=== PATIENT | female | born 1955 | race Caucasian/White ===

== ENCOUNTER → 2016-04-24 | Outpatient (CLI) | payer OTHER ==
[~2016-04-24] MED LIST: ACTOSPLUSMET PD; CALA180T OR; FAMO40TA2 OR; GLIP5TAB2 PO; JANUVIA PO; LASI80TA OR; LISI5TAB OR; NIAS750T3 OR; PLAV75TA2 OR; POTA20TA OR; ROSU10TA OR; VALS40TA OR; ZETI10TA OR
[2016-04-24 09:12] LABS: BASO # 0.1 K/mm3 (0.0-0.2); BASO % 0.9 % (0.0-1.0); EOS # 0.3 K/mm3 (0.0-0.50); EOS % 3.3 % (0.0-3.0); LYMPH # 3.3 K/mm3 (1.5-4.5); LYMPH % 36.9 % (24.0-44.0); MEAN CORPUSCULAR HGB CONC 32.2 g/dl (32.0-36.5); MONO # 0.5 K/mm3 (0.0-0.8); MONO % 5.5 % (0.0-5.0); NEUTROPHILS # 4.5 K/mm3 (1.8-7.7); NEUTROPHILS % 50.9 % (36.0-66.0); RED CELL DISTRIBUTION WIDTH 13.6 % (11.5-14.5); WHITE BLOOD COUNT 8.9 K/mm3 (4.0-10.0)
[2016-04-24 09:46] LABS: ALBUMIN 3.3 GM/DL (3.2-5.2); ALBUMIN/GLOBULIN RATIO 0.97 (1.00-1.93); ALKALINE PHOSPHATASE 75 U/L (45-117); ALT/SGPT 13 U/L (12-78); ANION GAP 10 MEQ/L (8-16); AST/SGOT 11 U/L (15-37); BILIRUBIN,TOTAL 0.2 MG/DL (0.2-1.0); BLOOD UREA NITROGEN 11 MG/DL (7-18); CALCIUM LEVEL 9.2 MG/DL (8.8-10.2); CARBON DIOXIDE LEVEL 26 MEQ/L (21-32); CHLORIDE LEVEL 107 MEQ/L (98-107); CHOLESTEROL LEVEL 157 MG/DL (<200); CREATININE FOR GFR 0.91 MG/DL (0.55-1.02); GLOMERULAR FILTRATION RATE > 60.0 (>45); GLUCOSE, FASTING 116 MG/DL (80-110); POTASSIUM SERUM 4.3 MEQ/L (3.5-5.1); SODIUM LEVEL 143 MEQ/L (136-145); TOTAL PROTEIN 6.7 GM/DL (6.4-8.2); TRIGLYCERIDES LEVEL 176 MG/DL (<150)
== END ==
LOC: M LAB 08:13
PROVIDERS: ATTEND Physician Assistant Medical
DX: E11.9 Type 2 diabetes mellitus without complications (principal)

== ENCOUNTER → 2016-06-13 | Outpatient (CLI) | payer OTHER ==
--- NOTE | 2016-06-13 15:19 | RADONC ---
RADIATION ONCOLOGY FOLLOWUP NOTE: DATE OF SERVICE: 06/13/2016 CHART NO: 15 - 015 DIAGNOSIS: Right breast cancer. STAGE: Stage 0, [id number] ECOG PERFORMANCE STATUS: 0 Ms. 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 The patient presents today reporting that she is doing quite well with no complaints at this time related to her radiation therapy or disease. She has no breast or bone pain. REVIEW OF SYSTEMS: The patient's review of systems is noncontributory. Denies nausea, vomiting, fevers, chills, night sweats, diplopia, headaches, anxiety or depression, anorexia, weight loss, visual disturbances, chest pain, urinary or bowel difficulties, bone pain, or neurological problems. PHYSICAL EXAMINATION: The patient is a well-developed, well-nourished female in no acute distress. HEENT exam is normocephalic, atraumatic. Extraocular movements are intact. There is no palpable cervical, supraclavicular, infraclavicular, axillary, or inguinal lymphadenopathy present. Lungs are clear to auscultation and percussion. Heart has a regular rate and rhythm. Abdomen is benign with no hepatosplenomegaly, masses, or tenderness. Breast examination reveals no masses or discharge bilaterally. Skeletal examination reveals no tenderness to pressure or percussion of the bony skeleton. Extremities reveal no clubbing, cyanosis, or edema. Neurologic exam is grossly intact, as is the remainder of the physical examination. ASSESSMENT: The patient is clinically DIEGO at this time and will be seen by us again in 6 months for further followup. She will also continue to be followed by her other physicians as well. cc: DO Tara Davalos MD *NICOLETTE Morgan
== END ==
LOC: M ONCR 13:50
PROVIDERS: ATTEND Radiology Radiation Oncology
DX: D05.11 Intraductal carcinoma in situ of right breast (principal)

== ENCOUNTER → 2016-07-20 | Outpatient (CLI) | payer OTHER ==
[2016-07-20 09:01] LABS: BASO # 0.1 K/mm3 (0.0-0.2); BASO % 1.8 % (0.0-1.0); EOS # 0.2 K/mm3 (0.0-0.50); EOS % 3.1 % (0.0-3.0); LYMPH # 2.5 K/mm3 (1.5-4.5); LYMPH % 29.9 % (24.0-44.0); MEAN CORPUSCULAR HEMOGLOBIN 29.3 pg (27.0-33.0); MEAN CORPUSCULAR HGB CONC 32.7 g/dl (32.0-36.5); MEAN CORPUSCULAR VOLUME 89.8 fl (80.0-96.0); MONO # 0.5 K/mm3 (0.0-0.8); MONO % 5.9 % (0.0-5.0); NEUTROPHILS # 4.5 K/mm3 (1.8-7.7); NEUTROPHILS % 57.2 % (36.0-66.0); RED CELL DISTRIBUTION WIDTH 13.1 % (11.5-14.5); WHITE BLOOD COUNT 7.8 K/mm3 (4.0-10.0)
[2016-07-20 09:33] LABS: ALBUMIN 3.6 GM/DL (3.2-5.2); ALBUMIN/GLOBULIN RATIO 1.06 (1.00-1.93); BILIRUBIN,TOTAL 0.3 MG/DL (0.2-1.0); CALCIUM LEVEL 9.1 MG/DL (8.8-10.2); CREATININE FOR GFR 1.02 MG/DL (0.55-1.02); GLOMERULAR FILTRATION RATE 58.3 (>45)
== END ==
LOC: M LAB 08:17
PROVIDERS: ATTEND Physician Assistant Medical
DX: E11.9 Type 2 diabetes mellitus without complications (principal)

== ENCOUNTER 2016-09-15 21:19 | Emergency (ER) | payer MEDICAID ==
[~2016-09-15] VITALS: Ht 157.5 cm; Wt 96.8 kg
[2016-09-15] MEDS ORDERED: METF-415 PO (21:34)
[2016-09-15] MEDS ORDERED: TAMO20TA4 PO (21:34)
[2016-09-15] MEDS ORDERED: TOUJ1.2I SC (21:34)
[2016-09-15] MEDS ORDERED: LOSA100T36 PO (21:34)
[2016-09-15] MEDS ORDERED: SPIR25TA2 PO (21:34)
[2016-09-15] MEDS ORDERED: HYDR-3363 PO (21:34)
[2016-09-15] MEDS ORDERED: CHLO25TA PO (21:34)
[2016-09-15] MEDS ORDERED: VENL75TA2 PO (21:34)
[2016-09-15] MEDS ORDERED: JARD1TAB3 PO (21:34)
[2016-09-15] MEDS ORDERED: DRIS50002 PO (21:34)
[2016-09-15] MEDS ORDERED: ATOR80TA59 PO (21:34)
[2016-09-15] MEDS ORDERED: NORCO 5/325MG TABLET (BULK FOR ED) PO ONE (23:45)
[2016-09-16 00:14] VITALS: BP 164/86
--- NOTE | 2016-09-16 12:57 | REP ---
RIGHT HAND SERIES: Four views right hand performed. There is a nondisplaced fracture at the base of the fourth proximal phalanx which extends into the metacarpophalangeal joint. No other acute fracture or dislocation is seen. IMPRESSION: Nondisplaced intra-articular fracture base of fourth proximal phalanx. Signed by Rohan Blue MD 09/16/2016 07:30 P
[2016-10-24] MEDS ORDERED: FAMO40TA3 PO (09:45)
[2016-10-24] MEDS ORDERED: PLAV1TAB2 PO (09:45)
[2016-10-24] MEDS ORDERED: JARD1TAB3 PO (09:45)
[2016-10-24] MEDS ORDERED: VERA1TAB11 PO (09:45)
== END 2016-09-16 00:16 | disposition home or self-care (01) ==
LOC: M ED 21:19
DX: S62.644A Nondisplaced fracture of proximal phalanx of right ring finger, initial encounter for closed fracture (principal); S50.311A Abrasion of right elbow, initial encounter; W10.1XXA Fall (on)(from) sidewalk curb, initial encounter; Y92.410 Unspecified street and highway as the place of occurrence of the external cause; Y93.89 Activity, other specified; Y99.8 Other external cause status; G43.909 Migraine, unspecified, not intractable, without status migrainosus; R56.9 Unspecified convulsions; E78.00 Pure hypercholesterolemia, unspecified; I10 Essential (primary) hypertension; E11.9 Type 2 diabetes mellitus without complications; N28.89 Other specified disorders of kidney and ureter; F32.9 Major depressive disorder, single episode, unspecified; Z85.3 Personal history of malignant neoplasm of breast; Z79.899 Other long term (current) drug therapy; Z79.02 Long term (current) use of antithrombotics/antiplatelets; Z79.4 Long term (current) use of insulin

== ENCOUNTER → 2016-10-24 | Outpatient (CLI) | payer OTHER ==
[~2016-10-24] MED LIST changes: +ATOR80TA59 PO; +CHLO25TA PO; +DRIS50002 PO; +FAMO40TA3 PO; +HYDR-3363 PO; +JARD1TAB3 PO; +LOSA100T36 PO; +METF-415 PO; +PLAV1TAB2 PO; +SPIR25TA2 PO; +TAMO20TA4 PO; +TOUJ1.2I SC; +VENL75TA2 PO; +VERA1TAB11 PO
[2016-10-24 08:57] LABS: BASO # 0.1 K/mm3 (0.0-0.2); BASO % 1.3 % (0.0-1.0); EOS # 0.2 K/mm3 (0.0-0.50); EOS % 2.9 % (0.0-3.0); LYMPH # 2.3 K/mm3 (1.5-4.5); LYMPH % 25.3 % (24.0-44.0); MEAN CORPUSCULAR HEMOGLOBIN 29.1 pg (27.0-33.0); MEAN CORPUSCULAR HGB CONC 32.4 g/dl (32.0-36.5); MEAN CORPUSCULAR VOLUME 89.9 fl (80.0-96.0); MONO # 0.5 K/mm3 (0.0-0.8); MONO % 5.6 % (0.0-5.0); NEUTROPHILS # 5.6 K/mm3 (1.8-7.7); NEUTROPHILS % 63.6 % (36.0-66.0); RED CELL DISTRIBUTION WIDTH 12.9 % (11.5-14.5); WHITE BLOOD COUNT 8.8 K/mm3 (4.0-10.0)
[2016-10-24 09:00] LABS: INR 0.94
[2016-10-24 09:24] LABS: ALBUMIN 3.5 GM/DL (3.2-5.2); ALKALINE PHOSPHATASE 62 U/L (45-117); ALT/SGPT 14 U/L (12-78); ANION GAP 9 MEQ/L (8-16); AST/SGOT 19 U/L (15-37); BILIRUBIN,TOTAL 0.5 MG/DL (0.2-1.0); BLOOD UREA NITROGEN 17 MG/DL (7-18); CALCIUM LEVEL 9.3 MG/DL (8.8-10.2); CARBON DIOXIDE LEVEL 25 MEQ/L (21-32); CHLORIDE LEVEL 107 MEQ/L (98-107); CHOLESTEROL LEVEL 148 MG/DL (<200); CREATININE FOR GFR 0.84 MG/DL (0.55-1.02); GLOMERULAR FILTRATION RATE > 60.0 (>45); GLUCOSE, FASTING 91 MG/DL (80-110); SODIUM LEVEL 141 MEQ/L (136-145); TRIGLYCERIDES LEVEL 155 MG/DL (<150)
[2016-10-24 09:33] LABS: POTASSIUM SERUM 5.2 MEQ/L (3.5-5.1)
--- NOTE | 2016-10-24 17:00 | REP ---
Chest x-ray: Two views: History: Age-related cataract. Comparison chest x-ray 02/14/2014. Findings: The lungs are symmetrically aerated and free of infiltrate. Pleural angles are sharp. Heart is not enlarged. There are degenerative changes in the thoracic spine. Pulmonary vasculature is not increased. Impression: Degenerative changes in the thoracic spine. Otherwise no active disease. Signed by Kurt Barnes MD 10/24/2016 05:12 P
--- NOTE | 2016-10-24 23:22 | ECGEPIP ---
Stationary ECG Study [facility] Test Date: 2016-10-24 Pat Name: JANAE PAEZ Department: Room: - Gender: F Civil Designer: ELIEZER : 1955 Requested By: Brooklyn Abad Order Number: [id number] Reading MD: Travis Ramirez Measurements Intervals [place] Rate: 85 P: 62 SD: 170 QRS: 26 QRSD: 96 T: 47 QT: 380 QTc: 452 Interpretive Statements SINUS RHYTHM LOW QRS VOLTAGE IN PRECORDIAL LEADS INFERIOR MYOCARDIAL INFARCTION, OLD Poor R-wave progression. No significant change compared with 02/26/2014. Electronically Signed On 10-24-2016 23:22:37 EDT by Travis Ramirez
== END ==
LOC: M LAB 08:08
PROVIDERS: ATTEND Physician Assistant Medical
DX: Z01.818 Encounter for other preprocedural examination (principal); H25.22 Age-related cataract, morgagnian type, left eye; E11.9 Type 2 diabetes mellitus without complications; I25.2 Old myocardial infarction; M51.34 Other intervertebral disc degeneration, thoracic region

== ENCOUNTER 2016-11-07 12:54 | Day surgery (SDC) | payer MEDICAID, OTHER ==
[~2016-11-07] VITALS: Ht 157.5 cm; Wt 97.1 kg
[~2016-11-07 12:54] MED LIST changes: +ACETAMINOPHEN 325 MG TAB PO PRN; +BSS with VANC/TOB/EPI for EYE CASES IR ONE; +CYCLOPENTOLATE 2% OPHTH SOLN 2ML BTL OS ONE; +HEALON DUET (HEALON 10MG/ML 0.55ML & HEALON ENDOCOAT 30MG/ML 0.85ML) As Ordered ONE; +LIDOCAINE 1% SDV 5 ML VIAL As Ordered ONE; +LIDOCAINE 3.5 % 1ML OPHTH TOPICAL GEL OU ONE; +MOXIFLOXACIN IN BSS 0.25MG/0.25ML INTRACAMERAL INJ (OR EYE ONLY)(J2280) As Ordered ONE; +OFLOXACIN 0.3 % (OCUFLOX) OPTH SOL 5ML OS ONE; +PHENYLEPHRINE 2.5% OPHTH SOL 2ML OS ONE; +POVIDONE-IODINE 5% OPHTH PREP SOL 30ML As Ordered ONE; +PROPARACAINE 0.5% OPHTH SOL 15ML OS PRN; +TRIAMCINOLONE PRES FR 40 MG/ML 1ML(TRIESENCE)(OR EYE ONLY)(J3300 PER 1MG) As Ordered ONE; +TROPICAMIDE 1% OPHTH SOLN 2ML OS ONE
[2016-11-07] MEDS ORDERED: D5W/0.2% SODIUM CHLORIDE 250 ML IV ONE (13:00)
[2016-11-07] MEDS ORDERED: MIDAZOLAM INJ 2 MG/2 ML VIAL (J2250) As Ordered ONE (14:38)
[2016-11-07] MEDS ORDERED: fentaNYL 100 MCG/2 ML INJECTION (J3010) As Ordered ONE (14:38)
[2016-11-07 15:15] VITALS: BP 141/66
[2016-11-07] MEDS ORDERED: TRIMETHOBENZAMIDE 300 MG CAP PO PRN (15:30)
[2016-11-07] MEDS ORDERED: AcetaZOLAMIDE 500 MG ER CAP PO ONE (15:30)
[2016-11-07] MEDS ORDERED: KETOROLAC 0.5% OPHTH SOLN OS ONE (15:30)
== END 2016-11-07 15:53 | disposition home or self-care (01) ==
LOC: M SDC 12:54
PROVIDERS: ATTEND Ophthalmology
DX: H26.9 Unspecified cataract (principal); I10 Essential (primary) hypertension; E78.00 Pure hypercholesterolemia, unspecified; I73.9 Peripheral vascular disease, unspecified; E11.9 Type 2 diabetes mellitus without complications; R12 Heartburn; M17.11 Unilateral primary osteoarthritis, right knee; R06.83 Snoring; C50.911 Malignant neoplasm of unspecified site of right female breast; Z92.3 Personal history of irradiation; Z85.828 Personal history of other malignant neoplasm of skin; Z87.891 Personal history of nicotine dependence; Z79.899 Other long term (current) drug therapy; Z79.02 Long term (current) use of antithrombotics/antiplatelets; Z79.4 Long term (current) use of insulin

== ENCOUNTER → 2016-12-03 | Outpatient (CLI) | payer MEDICAID, OTHER ==
[~2016-12-03] MED LIST changes: -ACETAMINOPHEN 325 MG TAB PO PRN; -BSS with VANC/TOB/EPI for EYE CASES IR ONE; -CYCLOPENTOLATE 2% OPHTH SOLN 2ML BTL OS ONE; -HEALON DUET (HEALON 10MG/ML 0.55ML & HEALON ENDOCOAT 30MG/ML 0.85ML) As Ordered ONE; -LIDOCAINE 1% SDV 5 ML VIAL As Ordered ONE; -LIDOCAINE 3.5 % 1ML OPHTH TOPICAL GEL OU ONE; -MOXIFLOXACIN IN BSS 0.25MG/0.25ML INTRACAMERAL INJ (OR EYE ONLY)(J2280) As Ordered ONE; -OFLOXACIN 0.3 % (OCUFLOX) OPTH SOL 5ML OS ONE; -PHENYLEPHRINE 2.5% OPHTH SOL 2ML OS ONE; -POVIDONE-IODINE 5% OPHTH PREP SOL 30ML As Ordered ONE; -PROPARACAINE 0.5% OPHTH SOL 15ML OS PRN; -TRIAMCINOLONE PRES FR 40 MG/ML 1ML(TRIESENCE)(OR EYE ONLY)(J3300 PER 1MG) As Ordered ONE; -TROPICAMIDE 1% OPHTH SOLN 2ML OS ONE
--- NOTE | 2016-12-04 07:56 | REPMRS ---
Patient History The patient states she has not had a clinical breast exam in over a year. Patient is postmenopausal and has history of breast cancer at age 59. Family history of unknown cancer in mother at age 46. Malignant radio exam breast specimen, February 04, 2014. Malignant localization of breast nodule of the right breast, February 04, 2014. Benign radio exam breast specimen of the right breast, January 06, 2014. Benign stereotatic loc for ea lesion of the right breast, January 06, 2014. Taking tamoxifen for 9 months. Digital Mammo Screening Bilat: December 03, 2016 - Exam #: [id number] Bilateral CC and MLO view(s) were taken. Technologist: Jessica Cooper Technologist Prior study comparison: November 30, 2015, bilateral digital mammo screening bilat performed at [facility]. June 13, 2015, right breast digital mammo diagnostic unilateral performed at [facility]. November 16, 2014, digital mammo diagnostic bilateral performed at [facility]. FINDINGS: There are scattered fibroglandular densities. There are stable post treatment changes in the right breast. There is a moderate amount of residual fibroglandular tissue which is fairly symmetric. There is no interval development of dominant mass, architectural distortion, or clustered microcalcification typical of malignancy. There has been no change in the appearance of the mammogram from the prior studies. ASSESSMENT: BI-RADS/ACR category 2 mammogram. Benign finding(s). Recommendation Routine screening mammogram of both breasts in 1 year (for women over age 40). This mammogram was interpreted with the aid of an FDA-approved computer-aided dectection system. Electronically Signed By: Wade Barnes MD 12/03/16 8192
== END ==
LOC: M RAD 13:37
PROVIDERS: ATTEND Nurse Practitioner Family
DX: Z12.31 Encounter for screening mammogram for malignant neoplasm of breast (principal)

== ENCOUNTER → 2016-12-03 | Outpatient (CLI) | payer OTHER ==
[2016-12-03 09:44] LABS: BASO # 0.2 10^3/uL (0.0-0.2); BASO % 1.7 % (0.0-1.0); EOS # 0.3 10^3/uL (0.0-0.50); EOS % 3.5 % (0.0-3.0); IMMATURE GRANULOCYTE % 0.3 % (0-0); LYMPH # 2.9 10^3/uL (1.5-4.5); LYMPH % 33.4 % (24.0-44.0); MEAN CORPUSCULAR HEMOGLOBIN 27.9 pg (27.0-33.0); MEAN CORPUSCULAR HGB CONC 31.7 g/dl (32.0-36.5); MONO # 0.8 10^3/uL (0.0-0.8); NEUTROPHILS # 4.5 10^3/uL (1.8-7.7); NEUTROPHILS % 52.1 % (36.0-66.0); RED CELL DISTRIBUTION WIDTH 13.8 % (11.5-14.5); WHITE BLOOD COUNT 8.7 10^3/uL (4.0-10.0)
[2016-12-03 10:25] LABS: ALBUMIN 3.3 GM/DL (3.2-5.2); ALBUMIN/GLOBULIN RATIO 0.94 (1.00-1.93); ALKALINE PHOSPHATASE 60 U/L (45-117); ALT/SGPT 14 U/L (12-78); ANION GAP 6 MEQ/L (8-16); AST/SGOT 7 U/L (15-37); BILIRUBIN,TOTAL 0.3 MG/DL (0.2-1.0); BLOOD UREA NITROGEN 10 MG/DL (7-18); CALCIUM LEVEL 8.8 MG/DL (8.8-10.2); CARBON DIOXIDE LEVEL 28 MEQ/L (21-32); CHLORIDE LEVEL 106 MEQ/L (98-107); CHOLESTEROL LEVEL 146 MG/DL (<200); CREATININE FOR GFR 0.81 MG/DL (0.55-1.02); GLOMERULAR FILTRATION RATE > 60.0 (>45); GLUCOSE, FASTING 106 MG/DL (80-110); POTASSIUM SERUM 4.4 MEQ/L (3.5-5.1); SODIUM LEVEL 140 MEQ/L (136-145); TOTAL PROTEIN 6.8 GM/DL (6.4-8.2); TRIGLYCERIDES LEVEL 104 MG/DL (<150)
== END ==
LOC: M LAB 08:46
PROVIDERS: ATTEND Physician Assistant Medical
DX: E11.9 Type 2 diabetes mellitus without complications (principal)

== ENCOUNTER 2016-12-11 09:05 | Day surgery (SDC) | payer OTHER ==
[~2016-12-11] VITALS: Ht 160 cm; Wt 95.3 kg
[~2016-12-11 09:05] MED LIST changes: +ACETAMINOPHEN 325 MG TAB PO PRN; +BSS with VANC/TOB/EPI for EYE CASES IR ONE; +CYCLOPENTOLATE 2% OPHTH SOLN 2ML BTL XX ONE; +LIDOCAINE 3.5 % 1ML OPHTH TOPICAL GEL OU ONE; +OFLOXACIN 0.3 % (OCUFLOX) OPTH SOL 5ML XX ONE; +PHENYLEPHRINE 2.5% OPHTH SOL 2ML XX ONE; +PROPARACAINE 0.5% OPHTH SOL 15ML XX PRN; +TROPICAMIDE 1% OPHTH SOLN 2ML XX ONE
[2016-12-11] MEDS ORDERED: LR 1,000 ML IV SCH (09:15)
[2016-12-11] MEDS ORDERED: LIDOCAINE 1% SDV 5 ML VIAL SQ ONE (09:15)
[2016-12-11] MEDS ORDERED: MIDAZOLAM INJ 2 MG/2 ML VIAL (J2250) As Ordered ONE (10:49)
[2016-12-11] MEDS ORDERED: fentaNYL 100 MCG/2 ML INJECTION (J3010) As Ordered ONE (10:53)
[2016-12-11] MEDS ORDERED: LIDOCAINE 1% SDV 5 ML VIAL As Ordered ONE (10:58)
[2016-12-11] MEDS ORDERED: TRIAMCINOLONE PRES FR 40 MG/ML 1ML(TRIESENCE)(OR EYE ONLY)(J3300 PER 1MG) As Ordered ONE (10:58)
[2016-12-11] MEDS ORDERED: POVIDONE-IODINE 5% OPHTH PREP SOL 30ML As Ordered ONE (10:58)
[2016-12-11] MEDS ORDERED: MOXIFLOXACIN IN BSS 0.25MG/0.25ML INTRACAMERAL INJ (OR EYE ONLY)(J2280) As Ordered ONE (10:59)
[2016-12-11] MEDS ORDERED: HEALON DUET (HEALON 10MG/ML 0.55ML & HEALON ENDOCOAT 30MG/ML 0.85ML) As Ordered ONE ×2 (10:59→11:01)
[2016-12-11] MEDS ORDERED: AcetaZOLAMIDE 500 MG ER CAP As Ordered ONE (11:44)
[2016-12-11] MEDS ORDERED: ACETAMINOPHEN TAB 650MG DOSE (2X325MG) PO PRN (11:45)
[2016-12-11] MEDS ORDERED: ONDANSETRON 4MG/2ML VIAL (J2405) IV PRN (11:45)
[2016-12-11] MEDS ORDERED: KETOROLAC 0.5% OPHTH SOLN XX ONE (11:45)
[2016-12-11] MEDS ORDERED: AcetaZOLAMIDE 500 MG ER CAP PO ONE (11:45)
[2016-12-11] MEDS ORDERED: TRIMETHOBENZAMIDE 300 MG CAP PO PRN (11:45)
[2016-12-11 11:50] VITALS: BP 114/56
== END 2016-12-11 12:09 | disposition home or self-care (01) ==
LOC: M SDC 09:05
PROVIDERS: ATTEND Ophthalmology
DX: H26.9 Unspecified cataract (principal); I10 Essential (primary) hypertension; I73.9 Peripheral vascular disease, unspecified; E78.00 Pure hypercholesterolemia, unspecified; E10.9 Type 1 diabetes mellitus without complications; K21.9 Gastro-esophageal reflux disease without esophagitis; M17.11 Unilateral primary osteoarthritis, right knee; F32.9 Major depressive disorder, single episode, unspecified; G43.909 Migraine, unspecified, not intractable, without status migrainosus; R56.9 Unspecified convulsions; C50.911 Malignant neoplasm of unspecified site of right female breast; Z79.899 Other long term (current) drug therapy; Z79.84 Long term (current) use of oral hypoglycemic drugs; Z92.3 Personal history of irradiation; Z87.891 Personal history of nicotine dependence

== ENCOUNTER → 2016-12-12 | Outpatient (CLI) | payer OTHER ==
[~2016-12-12] MED LIST changes: -ACETAMINOPHEN 325 MG TAB PO PRN; -BSS with VANC/TOB/EPI for EYE CASES IR ONE; -CYCLOPENTOLATE 2% OPHTH SOLN 2ML BTL XX ONE; -LIDOCAINE 3.5 % 1ML OPHTH TOPICAL GEL OU ONE; -OFLOXACIN 0.3 % (OCUFLOX) OPTH SOL 5ML XX ONE; -PHENYLEPHRINE 2.5% OPHTH SOL 2ML XX ONE; -PROPARACAINE 0.5% OPHTH SOL 15ML XX PRN; -TROPICAMIDE 1% OPHTH SOLN 2ML XX ONE
--- NOTE | 2016-12-13 06:13 | RADONC ---
RADIATION ONCOLOGY FOLLOWUP NOTE DATE: 12/12/2016 CHART NUMBER: [id number] DIAGNOSIS: Right breast cancer. STAGE 0, [id number]. ECOG PERFORMANCE STATUS: 0 FOLLOWUP NOTE: Ms. Bullock is a very pleasant 61-year-old white female with the diagnosis of a stage 0, UiyS8O3 ductal carcinoma in situ of the right breast who is presenting to us today for routine followup visit 2-1/2 years post completion of external beam radiation therapy. The patient presents today reporting that she is doing quite well with no complaints at this time related to her radiation therapy or disease. She has no breast or bone pain. The patient's review of systems is noncontributory. She denies nausea, vomiting, fevers, chills, night sweats, diplopia, headaches, anxiety or depression, anorexia, weight loss, visual disturbances, chest pain, urinary or bowel difficulties, bone pain, or neurological problems. PHYSICAL EXAMINATION: The patient is a well-developed, well-nourished female in no acute distress. HEENT exam is normocephalic, atraumatic. Extraocular movements are intact. There is no palpable cervical, supraclavicular, infraclavicular, axillary, or inguinal lymphadenopathy present. Lungs are clear to auscultation and percussion. Heart has a regular rate and rhythm. Abdomen is benign with no hepatosplenomegaly, masses, or tenderness. Breast examination reveals no masses or discharge bilaterally. Skeletal examination reveals no tenderness to pressure or percussion of the bony skeleton. Extremities reveal no clubbing, cyanosis, or edema. Neurologic exam is grossly intact, as is the remainder of the physical examination. ASSESSMENT: The patient is clinically DIEGO at this time and will be seen by us again in 6 months for further followup. She will also continue to be followed by her other physicians as well. cc: MD Brooklyn Mcdonald PA
== END ==
LOC: M ONCR 13:28
PROVIDERS: ATTEND Radiology Radiation Oncology
DX: D05.11 Intraductal carcinoma in situ of right breast (principal)

== ENCOUNTER → 2017-05-17 | Outpatient (CLI) | payer OTHER ==
[2017-05-17 09:23] LABS: HEMATOCRIT 40.2 % (36.0-47.0); MEAN CORPUSCULAR HGB CONC 32.3 g/dl (32.0-36.5); MEAN CORPUSCULAR VOLUME 86.6 fl (80.0-96.0); PLATELET COUNT, AUTOMATED 422 10^3/uL (150-450); RED BLOOD COUNT 4.64 10^6/uL (4.00-5.40); RED CELL DISTRIBUTION WIDTH 13.9 % (11.5-14.5); WHITE BLOOD COUNT 10.5 10^3/uL (4.0-10.0)
[2017-05-17 09:52] LABS: ALBUMIN 3.5 GM/DL (3.2-5.2); ALBUMIN/GLOBULIN RATIO 0.97 (1.00-1.93); ALKALINE PHOSPHATASE 67 U/L (45-117); ALT/SGPT 16 U/L (12-78); ANION GAP 9 MEQ/L (8-16); AST/SGOT 9 U/L (7-37); BILIRUBIN,TOTAL 0.3 MG/DL (0.2-1.0); BLOOD UREA NITROGEN 18 MG/DL (7-18); CALCIUM LEVEL 9.1 MG/DL (8.8-10.2); CARBON DIOXIDE LEVEL 25 MEQ/L (21-32); CHLORIDE LEVEL 106 MEQ/L (98-107); CHOLESTEROL LEVEL 156 MG/DL (<200); CHOLESTEROL RISK RATIO 4.727 (<5); CREATININE FOR GFR 0.87 MG/DL (0.55-1.30); GLOMERULAR FILTRATION RATE > 60.0 (>45); GLUCOSE, FASTING 104 MG/DL (70-100); HDL CHOLESTEROL 33 MG/DL (>40); LDL CHOLESTEROL 88.2 MG/DL (<100); NON-HDL-C 123 MG/DL; POTASSIUM SERUM 3.9 MEQ/L (3.5-5.1); SODIUM LEVEL 140 MEQ/L (136-145); TOTAL PROTEIN 7.1 GM/DL (6.4-8.2); TRIGLYCERIDES LEVEL 174 MG/DL (<150)
[2017-05-17 10:06] LABS: ESTIMATED AVERAGE GLUCOSE 166 MG/DL (60-110); HEMOGLOBIN A1c 7.4 %
[2017-05-17 10:28] LABS: TOTAL 25(OH) VITAMIN D 83.2 NG/ML (30.0-100.0)
== END ==
LOC: M LAB 08:03
DX: R53.83 Other fatigue (principal); E03.9 Hypothyroidism, unspecified; I10 Essential (primary) hypertension
CPT/HCPCS: 71046

== ENCOUNTER → 2017-06-07 | Outpatient (REF) | payer OTHER ==
[2017-06-11 14:13] LABS: HPV HYBRID CAPTURE II Negative (Negative)
== END ==
LOC: M LAB REF 18:23
DX: Z12.4 Encounter for screening for malignant neoplasm of cervix (principal)

== ENCOUNTER → 2017-06-13 | Outpatient (CLI) | payer OTHER | LOC: M RAD 13:51 | DX: Z12.31 Encounter for screening mammogram for malignant neoplasm of breast (principal) ==

== ENCOUNTER → 2017-06-19 | Outpatient (CLI) | payer OTHER | LOC: M ONCR 13:05 | DX: D05.11 Intraductal carcinoma in situ of right breast (principal) | CPT/HCPCS: 99211 ==

== ENCOUNTER → 2017-08-09 | Outpatient (REF) | payer OTHER ==
[2017-08-09 21:37] LABS: APPEARANCE, URINE CLOUDY (CLEAR); BACTERIA, URINE AUTO 1+ (NEGATIVE); BILIRUBIN, URINE AUTO NEGATIVE (NEGATIVE); BLOOD, URINE BLOOD NEGATIVE (NEGATIVE); COLOR, URINE YELLOW (YELLOW); GLUCOSE, URINE (UA) AUTO 3+ mg/dL (NEGATIVE); KETONE, URINE AUTO NEGATIVE (NEGATIVE); LEUKOCYTE ESTERASE, URINE AUTO 2+ (NEGATIVE); MUCUS, URINE SMALL (NEGATIVE); NITRITE, URINE AUTO NEGATIVE (NEGATIVE); PROTEIN, URINE AUTO NEGATIVE (NEGATIVE); RBC, URINE AUTO 2 /HPF (0-3); SPECIFIC GRAVITY URINE AUTO 1.026 (1.002-1.035); SQUAMOUS EPITHELIAL CELL UR AU 2 /HPF (0-6); WBC, URINE AUTO 8 /HPF (0-3)
== END ==
LOC: M LAB REF 08-10 10:15
DX: N39.0 Urinary tract infection, site not specified (principal)

== ENCOUNTER → 2017-09-11 | Outpatient (CLI) | payer OTHER ==
[2017-09-11 10:03] LABS: HEMATOCRIT 40.6 % (36.0-47.0); HEMOGLOBIN 13.1 g/dl (12.0-15.5); MEAN CORPUSCULAR HEMOGLOBIN 27.6 pg (27.0-33.0); MEAN CORPUSCULAR HGB CONC 32.3 g/dl (32.0-36.5); MEAN CORPUSCULAR VOLUME 85.5 fl (80.0-96.0); PLATELET COUNT, AUTOMATED 470 10^3/uL (150-450); RED BLOOD COUNT 4.75 10^6/uL (4.00-5.40); RED CELL DISTRIBUTION WIDTH 13.7 % (11.5-14.5); WHITE BLOOD COUNT 9.5 10^3/uL (4.0-10.0)
[2017-09-11 10:43] LABS: TOTAL 25(OH) VITAMIN D 68.5 NG/ML (30.0-100.0)
[2017-09-11 10:46] LABS: ALBUMIN 3.2 GM/DL (3.2-5.2); ALBUMIN/GLOBULIN RATIO 0.84 (1.00-1.93); ALKALINE PHOSPHATASE 75 U/L (45-117); ALT/SGPT 16 U/L (12-78); ANION GAP 8 MEQ/L (8-16); AST/SGOT 10 U/L (7-37); BILIRUBIN,TOTAL 0.4 MG/DL (0.2-1.0); BLOOD UREA NITROGEN 12 MG/DL (7-18); CALCIUM LEVEL 8.6 MG/DL (8.8-10.2); CARBON DIOXIDE LEVEL 26 MEQ/L (21-32); CHLORIDE LEVEL 108 MEQ/L (98-107); CHOLESTEROL LEVEL 149 MG/DL (<200); CHOLESTEROL RISK RATIO 4.257 (<5); CREATININE FOR GFR 0.85 MG/DL (0.55-1.30); GLOMERULAR FILTRATION RATE > 60.0 (>45); GLUCOSE, FASTING 101 MG/DL (70-100); HDL CHOLESTEROL 35 MG/DL (>40); IRON (FE) 71 UG/DL (50-170); LDL CHOLESTEROL 80.6 MG/DL (<100); NON-HDL-C 114 MG/DL; PERCENT SATURATION 18.2 % (13.2-45.0); POTASSIUM SERUM 4.2 MEQ/L (3.5-5.1); SODIUM LEVEL 142 MEQ/L (136-145); TOTAL IRON BINDING CAPACITY 391 UG/DL (250-450); TRIGLYCERIDES LEVEL 167 MG/DL (<150)
[2017-09-11 11:00] LABS: ESTIMATED AVERAGE GLUCOSE 171 MG/DL (60-110); HEMOGLOBIN A1c 7.6 %
== END ==
LOC: M LAB 09:33
DX: E03.9 Hypothyroidism, unspecified (principal); I10 Essential (primary) hypertension; E11.9 Type 2 diabetes mellitus without complications
CPT/HCPCS: 83550

== ENCOUNTER → 2017-10-10 | Outpatient (CLI) | payer OTHER ==
[2017-10-10 09:54] LABS: HEMATOCRIT 40.6 % (36.0-47.0); MEAN CORPUSCULAR HEMOGLOBIN 27.9 pg (27.0-33.0); MEAN CORPUSCULAR VOLUME 87.1 fl (80.0-96.0); PLATELET COUNT, AUTOMATED 492 10^3/uL (150-450); RED BLOOD COUNT 4.66 10^6/uL (4.00-5.40); RED CELL DISTRIBUTION WIDTH 15.1 % (11.5-14.5); WHITE BLOOD COUNT 11.4 10^3/uL (4.0-10.0)
[2017-10-10 10:21] LABS: ALBUMIN 3.3 GM/DL (3.2-5.2); ALBUMIN/GLOBULIN RATIO 0.92 (1.00-1.93); ALKALINE PHOSPHATASE 59 U/L (45-117); ALT/SGPT 16 U/L (12-78); ANION GAP 8 MEQ/L (8-16); AST/SGOT 9 U/L (7-37); BILIRUBIN,TOTAL 0.3 MG/DL (0.2-1.0); BLOOD UREA NITROGEN 15 MG/DL (7-18); CALCIUM LEVEL 8.9 MG/DL (8.8-10.2); CARBON DIOXIDE LEVEL 27 MEQ/L (21-32); CHLORIDE LEVEL 109 MEQ/L (98-107); CHOLESTEROL LEVEL 172 MG/DL (<200); CHOLESTEROL RISK RATIO 4.914 (<5); GLOMERULAR FILTRATION RATE > 60.0 (>45); GLUCOSE, FASTING 90 MG/DL (70-100); HDL CHOLESTEROL 35 MG/DL (>40); LDL CHOLESTEROL 101.8 MG/DL (<100); NON-HDL-C 137 MG/DL; POTASSIUM SERUM 4.3 MEQ/L (3.5-5.1); SODIUM LEVEL 144 MEQ/L (136-145); TOTAL PROTEIN 6.9 GM/DL (6.4-8.2); TRIGLYCERIDES LEVEL 176 MG/DL (<150)
[2017-10-10 10:27] LABS: ESTIMATED AVERAGE GLUCOSE 171 MG/DL (60-110); HEMOGLOBIN A1c 7.6 %
[2017-10-10 14:01] LABS: TOTAL 25(OH) VITAMIN D 67.9 NG/ML (30.0-100.0)
== END ==
LOC: M LAB 09:07
DX: I10 Essential (primary) hypertension (principal); E11.9 Type 2 diabetes mellitus without complications; R53.83 Other fatigue
CPT/HCPCS: 84443

== ENCOUNTER → 2017-12-05 | Outpatient (CLI) | payer OTHER | LOC: M RAD 12:01 | DX: Z12.31 Encounter for screening mammogram for malignant neoplasm of breast (principal); Z85.3 Personal history of malignant neoplasm of breast | CPT/HCPCS: 77067 ==

== ENCOUNTER → 2018-03-18 | Outpatient (CLI) | payer OTHER ==
[~2018-03-18] MED LIST changes: -DRIS50002 PO; +DRIS50003 PO; -LOSA100T36 PO; +LOSA100T50 PO; +SPIR-10 PO; -SPIR25TA2 PO; +STEG5TAB PO; -TAMO20TA4 PO; +TAMO20TA8 PO
[2018-03-18 09:41] LABS: HEMATOCRIT 42.2 % (36.0-47.0); HEMOGLOBIN 13.7 g/dl (12.0-15.5); MEAN CORPUSCULAR HEMOGLOBIN 28.2 pg (27.0-33.0); MEAN CORPUSCULAR HGB CONC 32.5 g/dl (32.0-36.5); MEAN CORPUSCULAR VOLUME 86.8 fl (80.0-96.0); PLATELET COUNT, AUTOMATED 484 10^3/uL (150-450); RED BLOOD COUNT 4.86 10^6/uL (4.00-5.40); WHITE BLOOD COUNT 9.7 10^3/uL (4.0-10.0)
[2018-03-18 10:04] LABS: ALBUMIN 3.6 GM/DL (3.2-5.2); ALT/SGPT 16 U/L (12-78); BILIRUBIN,TOTAL 0.3 MG/DL (0.2-1.0); BLOOD UREA NITROGEN 18 MG/DL (7-18); CALCIUM LEVEL 9.3 MG/DL (8.8-10.2); CARBON DIOXIDE LEVEL 24 MEQ/L (21-32); CHLORIDE LEVEL 104 MEQ/L (98-107); CHOLESTEROL LEVEL 153 MG/DL (<200); CHOLESTEROL RISK RATIO 3.731 (<5); CREATININE FOR GFR 0.88 MG/DL (0.55-1.30); GLOMERULAR FILTRATION RATE > 60.0 (>45); GLUCOSE, FASTING 118 MG/DL (70-100); HDL CHOLESTEROL 41 MG/DL (>40); LDL CHOLESTEROL 87 MG/DL (<100); NON-HDL-C 112 MG/DL; POTASSIUM SERUM 4.5 MEQ/L (3.5-5.1); SODIUM LEVEL 138 MEQ/L (136-145); TOTAL 25(OH) VITAMIN D 84.4 NG/ML (30.0-100.0); TOTAL PROTEIN 6.9 GM/DL (6.4-8.2); TRIGLYCERIDES LEVEL 127 MG/DL (<150)
[2018-03-18 10:07] LABS: HEMOGLOBIN A1c 7.3 %
== END ==
LOC: M LAB 08:51
PROVIDERS: ATTEND Family Medicine
DX: E11.9 Type 2 diabetes mellitus without complications (principal)

== ENCOUNTER → 2018-11-24 | Outpatient (REF) | payer MEDICARE, MEDICAID ==
[~2018-11-24] MED LIST changes: +CRES10TA32 OR; -ROSU10TA OR; +SERT-138 PO; +TRUL10IN SC; +VERA180T3 PO; -VERA1TAB11 PO; +VITA50005 PO
[2018-11-24 18:46] LABS: MALB URINE SIEMENS 12.7 MG/L; MAU/CREAT RATIO 11.6 MCG/MG (0.0-30.0)
== END ==
LOC: M LAB REF 17:14
PROVIDERS: ATTEND Nurse Practitioner Family
DX: E11.65 Type 2 diabetes mellitus with hyperglycemia (principal)

== ENCOUNTER → 2018-12-09 | Outpatient (CLI) | payer MEDICARE ==
[~2018-12-09] MED LIST changes: -SERT-138 PO; -TRUL10IN SC; -VITA50005 PO
== END ==
LOC: M RAD 09:56
PROVIDERS: ATTEND Advanced Practice Midwife
DX: Z12.31 Encounter for screening mammogram for malignant neoplasm of breast (principal)

== ENCOUNTER → 2018-12-30 | Outpatient (CLI) | payer MEDICARE | LOC: M SMT 13:06 | PROVIDERS: ATTEND Advanced Practice Midwife | DX: Z13.79 Encounter for other screening for genetic and chromosomal anomalies (principal) ==

== ENCOUNTER → 2018-12-31 | Outpatient (REF) | payer MEDICARE ==
[~2018-12-31] MED LIST changes: +SERT-138 PO; +TRUL10IN SC
[2019-01-02 14:17] LABS: HPV HYBRID CAPTURE II Negative (Negative)
== END ==
LOC: M LAB REF 17:25
PROVIDERS: ATTEND Advanced Practice Midwife
DX: Z12.4 Encounter for screening for malignant neoplasm of cervix (principal)
CPT/HCPCS: 87624; G0123

== ENCOUNTER → 2018-12-31 | Outpatient (CLI) | payer MEDICARE ==
--- NOTE | 2018-12-31 15:04 | REPMRS ---
Patient History The patient states she had a clinical breast exam in December 2018. Family history of unknown cancer at age 46 in mother. Malignant radio exam breast specimen, February 04, 2014. Malignant localization of breast nodule of the right breast, February 04, 2014. Benign radio exam breast specimen of the right breast, January 06, 2014. Benign stereotatic loc for ea lesion of the right breast, January 06, 2014. Taking tamoxifen for 9 months. Digital Mammo Screening Bilat: December 31, 2018 - Exam #: [id number] Bilateral CC and MLO view(s) were taken. Technologist: Chantale Boss, Technologist Prior study comparison: December 05, 2017, bilateral digital mammo screening bilat performed at [facility]. December 03, 2016, bilateral digital mammo screening bilat performed at [facility]. November 30, 2015, bilateral digital mammo screening bilat performed at [facility]. FINDINGS: There are scattered fibroglandular densities. There are stable post-treatment changes again noted on the right. There is a moderate amount of residual fibroglandular tissue which is fairly symmetric. There is no interval development of dominant mass, architectural distortion, or grouped microcalcification typical of malignancy. There has been no change in the appearance of the mammogram from the prior studies. 3-D tomosynthesis shows no additional findings. Assessment: BI-RADS/ACR category 2 mammogram. Benign Findings. Recommendation Routine screening mammogram of both breasts in 1 year (for women over age 40). This mammogram was interpreted with the aid of an FDA-approved computer-aided dectection system. Electronically Signed By: Wade Barnes MD 12/31/18 7109
== END ==
LOC: M RAD 12:31
PROVIDERS: ATTEND Advanced Practice Midwife
DX: Z12.31 Encounter for screening mammogram for malignant neoplasm of breast (principal); Z85.3 Personal history of malignant neoplasm of breast

== ENCOUNTER → 2019-02-06 | Outpatient (CLI) | payer MEDICARE, OTHER ==
--- NOTE | 2019-02-06 16:52 | REP ---
CT CHEST WITHOUT CONTRAST: LOW-DOSE SCREENING EXAM. HISTORY: Nicotine dependence. History of breast cancer. Comparison is made with multiple prior chest CT studies, the most recent which is from August 17, 2016. The most remote prior chest CT is from July 21, 2014. CT FINDINGS: Moderate vascular calcification is again noted including coronary artery territory calcification. There is a stable 3 mm nodule in the left upper lobe on page 37 of 100 in series 201 of today's study. This is visible in retrospect on each of the prior studies including July 21, 2014 and is unchanged and therefore benign. There is some minimal subpleural fibrosis in the right upper lobe suggesting previous postradiation fibrosis. This is improved from the 2016 prior study. No new pulmonary nodule or mass lesion is seen. IMPRESSION: Lung-RADS category 1 findings. Repeat screening exam suggested in 1 year, regarding lung cancer screening. Electronically Signed by Kurt Barnes MD 02/06/2019 05:05 P
== END ==
LOC: M RAD 12:30
PROVIDERS: ATTEND Internal Medicine Medical Oncology
DX: F17.210 Nicotine dependence, cigarettes, uncomplicated (principal)

== ENCOUNTER → 2019-04-02 | Outpatient (CLI) | payer MEDICARE ==
[~2019-04-02] MED LIST changes: +VITA50005 PO
[2019-04-02 08:34] LABS: ALBUMIN 3.1 GM/DL (3.2-5.2); ALT/SGPT 11 U/L (12-78); BILIRUBIN,TOTAL 0.3 MG/DL (0.2-1.0); BLOOD UREA NITROGEN 10 MG/DL (7-18); CALCIUM LEVEL 8.9 MG/DL (8.8-10.2); CARBON DIOXIDE LEVEL 26 MEQ/L (21-32); CHLORIDE LEVEL 109 MEQ/L (98-107); CHOLESTEROL LEVEL 275 MG/DL (<200); CHOLESTEROL RISK RATIO 7.857 (<5); CREATININE FOR GFR 0.83 MG/DL (0.55-1.30); GLOMERULAR FILTRATION RATE > 60.0 (>45); GLUCOSE, FASTING 154 MG/DL (70-100); HDL CHOLESTEROL 35 MG/DL (>40); LDL CHOLESTEROL 205 MG/DL (<100); NON-HDL-C 240 MG/DL; POTASSIUM SERUM 4.1 MEQ/L (3.5-5.1); SODIUM LEVEL 142 MEQ/L (136-145); TOTAL PROTEIN 6.9 GM/DL (6.4-8.2); TRIGLYCERIDES LEVEL 174 MG/DL (<150)
== END ==
LOC: M LAB 07:50
PROVIDERS: ATTEND Internal Medicine Endocrinology, Diabetes & Metabolism
DX: E78.2 Mixed hyperlipidemia (principal)

== ENCOUNTER → 2019-11-05 | Outpatient (CLI) | payer MEDICARE ==
--- NOTE | 2019-11-26 11:23 | REP ---
LEFT BREAST MAMMOGRAM WITH 3D TOMOSYNTHESIS AND LEFT BREAST ULTRASOUND CLINICAL HISTORY: Pain left breast and axillary tail region 12 to 2 o'clock. No family history of breast cancer. Personal history of right breast cancer in 2014. COMPARISON: 12/31/2018, as well as other prior exams. TECHNIQUE: MLO and CC views of the left breast are performed with 3D tomosynthesis. Moderate fibroglandular tissue is present predominantly in the upper outer quadrant. There is no change since prior studies. No new mass or architectural distortion. There are no clustered microcalcifications. There are benign calcifications noted in the left breast. Real-time sonographic evaluation of the left breast performed in the region of pain between 12 and 2 o'clock. Two morphologically normal lymph nodes are seen sonographically between 12 and 2 o'clock demonstrating a fatty hilum and normal short axis dimension. At 12 o'clock a lymph node measures 2.0 x 0.7 x 0.6 cm and at 2 o'clock a lymph node measures 4 x 4 x 3 mm. No other sonographic abnormalities are seen. IMPRESSION: ACR 2 benign. The appearance of the mammogram is unchanged with no new mass or clustered microcalcifications. Sonographically in the region of pain posteriorly between 12 and 2 o'clock, there are two normal appearing lymph nodes as discussed in detail above with no other cystic or solid nodule. A follow-up right breast mammogram is recommended in December 2019. This mammogram was interpreted with the aid of an FDA approved computer-aided detection system. Last clinical breast exam was reportedly October 2019. Patient letter 2. MTDD
== END ==
LOC: M WHC 14:10
PROVIDERS: ATTEND Physician Assistant
DX: N64.4 Mastodynia (principal); Z85.3 Personal history of malignant neoplasm of breast; R92.1 Mammographic calcification found on diagnostic imaging of breast
CPT/HCPCS: 76642; 77065; G0279

== ENCOUNTER → 2019-11-17 | Outpatient (REF) | payer MEDICARE ==
[2019-11-17 14:40] LABS: CREATININE, URINE 77.5 MG/DL; MALB URINE SIEMENS 8.9 MG/L; MAU/CREAT RATIO 11.4 MCG/MG (0.0-30.0)
== END ==
LOC: M LAB REF 13:14
PROVIDERS: ATTEND Nurse Practitioner Family
DX: E11.65 Type 2 diabetes mellitus with hyperglycemia (principal)

== ENCOUNTER → 2020-03-17 | Outpatient (CLI) | payer OTHER ==
[~2020-03-17] MED LIST changes: +JARD1TAB PO; +NAPR-837 PO; +OMEP20TA17 PO
--- NOTE | 2020-03-17 10:32 | REPMRS ---
Patient History The patient states she had a clinical breast exam in 10/2019 Patient is postmenopausal and has history of breast cancer at age 59. Family history of unknown cancer at age 46 in mother. Radiation therapy of the left breast, 2015. Malignant radio exam breast specimen, February 04, 2014. Malignant localization of breast nodule of the right breast, February 04, 2014. Benign radio exam breast specimen of the right breast, January 06, 2014. Benign stereotatic loc for ea lesion of the right breast, January 06, 2014. Took tamoxifen for 4 years. 3D TOMOSYNTHESIS WAS PERFORMED. [place] breast density b. Digital Woman Screen Mammo: March 17, 2020 - Exam #: [id number] Bilateral CC and MLO view(s) were taken. Technologist: Iris Hatfield, Technologist Prior study comparison: November 05, 2019, left breast diagnostic unilateral mammo performed at [facility] . December 31, 2018, bilateral digital mammo screening bilat, performed at [facility]. FINDINGS: There are scattered fibroglandular densities. There is a fairly symmetric fibroglandular pattern in both breasts. There has been no interval development of masses, areas of architectural distortion or clusters of microcalcifications typical of malignancy.Large coarse benign appearing calcifications are present. There are stable postsurgical changes in the right breast. No significant changes when compared with prior studies. Assessment: BI-RADS/ACR category 2 mammogram. Benign Findings. Recommendation Routine screening mammogram of both breasts in 1 year (for women over age 40). This mammogram was interpreted with the aid of an FDA-approved computer-aided dectection system. Electronically Signed By: Rohan Blue MD 03/17/20 1622
== END ==
LOC: M WHC 09:35
PROVIDERS: ATTEND Internal Medicine Hematology & Oncology
DX: Z12.31 Encounter for screening mammogram for malignant neoplasm of breast (principal)

== ENCOUNTER → 2020-04-08 | Outpatient (CLI) | payer OTHER ==
--- NOTE | 2020-04-08 15:26 | REP ---
INDICATION: LUNG CANCER SCREENING, F/U LUNG NODULE. COMPARISON: Comparison chest CT study 06 February 2019 and 17 August 2016.. TECHNIQUE: Low-dose screening protocol. 3 mm axial images are provided at lung only windows. FINDINGS: Digital preliminary mechanism inspector radiograph shows clips in right upper quadrant of the abdomen. Previous study showed a very small 3 mm nodule in the left upper lobe. This is unchanged when compared with the August 17, 2016 prior study. No new pulmonary nodule is appreciated. No mass lesion is observed. There is some vascular calcification. No endobronchial lesion is seen. IMPRESSION: Lung RADS category 1-findings. Repeat screening study indicated in 1 year. <Electronically signed by Wade Barnes > 04/08/20 1580
== END ==
LOC: M RAD 13:42
PROVIDERS: ATTEND Internal Medicine Hematology & Oncology
DX: R91.1 Solitary pulmonary nodule (principal)

== ENCOUNTER → 2020-04-15 | Outpatient (CLI) | payer OTHER ==
[2020-04-15 10:59] LABS: HEMATOCRIT 42.7 % (36.0-47.0); HEMOGLOBIN 13.5 g/dl (12.0-15.5); MEAN CORPUSCULAR HEMOGLOBIN 27.6 pg (27.0-33.0); MEAN CORPUSCULAR HGB CONC 31.6 g/dl (32.0-36.5); MEAN CORPUSCULAR VOLUME 87.3 fl (80.0-96.0); PLATELET COUNT, AUTOMATED 459 10^3/uL (150-450); RED BLOOD COUNT 4.89 10^6/uL (4.00-5.40); WHITE BLOOD COUNT 10.6 10^3/uL (4.0-10.0)
[2020-04-15 11:38] LABS: ALT/SGPT 17 U/L (12-78); BILIRUBIN,TOTAL 0.4 MG/DL (0.2-1.0); BLOOD UREA NITROGEN 14 MG/DL (7-18); CALCIUM LEVEL 9.6 MG/DL (8.8-10.2); CARBON DIOXIDE LEVEL 24 MEQ/L (21-32); CHLORIDE LEVEL 105 MEQ/L (98-107); CHOLESTEROL LEVEL 139 MG/DL (<200); CHOLESTEROL RISK RATIO 3.861 (<5); CREATININE FOR GFR 0.79 MG/DL (0.55-1.30); GLOMERULAR FILTRATION RATE > 60.0 (>45); GLUCOSE, FASTING 112 MG/DL (70-100); HDL CHOLESTEROL 36 MG/DL (>40); LDL CHOLESTEROL 80 MG/DL (<100); NON-HDL-C 103 MG/DL; POTASSIUM SERUM 4.5 MEQ/L (3.5-5.1); SODIUM LEVEL 139 MEQ/L (136-145); TOTAL 25(OH) VITAMIN D 88.1 NG/ML (30.0-100.0); TOTAL PROTEIN 7.4 GM/DL (6.4-8.2); TRIGLYCERIDES LEVEL 115 MG/DL (<150)
== END ==
LOC: M LAB 10:19
PROVIDERS: ATTEND Family Medicine
DX: R53.83 Other fatigue (principal); I10 Essential (primary) hypertension; E11.9 Type 2 diabetes mellitus without complications; Z79.899 Other long term (current) drug therapy

== ENCOUNTER 2020-12-08 17:29 | Emergency (ER) | payer OTHER ==
[~2020-12-08] VITALS: Ht 160 cm; Wt 86.2 kg
[~2020-12-08 17:29] MED LIST changes: +ERGO500029 PO; -VERA180T3 PO; +VERA180T50 PO; -VITA50005 PO
--- NOTE | 2020-12-08 18:44 | REP ---
INDICATION: CHEST PAIN COMPARISON: None TECHNIQUE: Portable AP view of the chest FINDINGS: The mediastinum and cardiac silhouette are within normal limits for portable technique. Indistinct central pulmonary vasculature with increased interstitial markings and cephalization suggest early interstitial edema and correlation is required. No focal consolidation or effusion. No pneumothorax. Skeletal structures intact. IMPRESSION: Cannot exclude early interstitial edema. No focal consolidation or effusion. <Electronically signed by Damian Cross > 12/08/20 8545
[2020-12-08 19:00] LABS: HEMATOCRIT 37.7 % (36.0-47.0); MEAN CORPUSCULAR HEMOGLOBIN 27.8 pg (27.0-33.0); MEAN CORPUSCULAR HGB CONC 31.8 g/dl (32.0-36.5); MEAN CORPUSCULAR VOLUME 87.3 fl (80.0-96.0); PLATELET COUNT, AUTOMATED 490 10^3/uL (150-450); RED BLOOD COUNT 4.32 10^6/uL (4.00-5.40); WHITE BLOOD COUNT 10.3 10^3/uL (4.0-10.0)
[2020-12-08 19:12] LABS: INR 1.04
[2020-12-08 19:13] LABS: PARTIAL THROMBOPLASTIN TIME 30.8 SECONDS (25.9-37.0)
--- OUTSIDE RECORDS SUMMARY | 2020-12-08 19:21 | CCD | Continuity of Care Document ---
Author Author Reema KEY DPM Organization Unknown Address [address] [place] [address], [address] [place] [address] Phone [phone] Care Team Providers Care Coffee Supervisor Name Role Phone MADIHA GoodM [phone] Problems Active Problems Provider Date Bunion Meño Key DPM Onset: 01/25/2017 Type 2 diabetes mellitus with diabetic polyneuropathy Meño Key DPM Onset: 01/25/2017 Onychomycosis Meño Key DPM Onset: 01/25/2017 Corns and callosities Meño Key DPM Onset: 01/25/2017 Social History Type Date Description Comments Sex Unknown ETOH Use Rarely consumes alcohol Tobacco Use Start: Unknown End: Unknown Patient is a former smoker Tobacco Use Start: Unknown Quit May 2016 after 50+ years of 2 PPD habit. Allergies, Adverse Reactions, Alerts Description No Known Drug Allergies Medications Active Medications SIG Qnty Indications Ordering Provide r Date Ammonium Lactate 12% Cream Apply To Feet Once Daily 280units Meño Key DPM 01/21/2017 Spironolactone Unknown Clopidogrel Bisulfate Unknown Chlorthalidone Unknown Vitamin D3 Unknown Verapamil HCL ER Unknown 00 Toujeo Solostar Unknown 0 Jardiance Unknown Richard Multiple W/Chelated Minerals Un known Atorvastatin Calcium Unknown Metformin HCL Unknown Hydroxyzine HCL Unknown 0 Famotidine Unknown Losartan Potassium Unknown Tamoxifen Citrate Unknown 00/00/0 000 Venlafaxine HCL ER Unknown Immunizations Description No Information Available Vital Signs Date Vital Result Comment 01/21/2017 11:38am Height 63 inches 5'3" Weight 213.00 lb BP Systolic 118 mmHg BP Diastolic 76 mmHg Heart Rate 74 /min BMI (Body Mass Index) 37.7 kg/m2 Results Description No Information Available Procedures Date Code Description Status 10/17/2020 86641 Debridement 6-10 Nails Electric Completed 10/17/2020 67372 Paring/Cut Benign Lesion 2 To 4 Completed 08/08/2020 92377 Debridement 6-10 [employer] Electric Completed 08/08/2020 10697 Paring/Cut Benign Lesion 2 To 4 Completed 06/06/2020 04982 Debridement 6-10 Nails Electric Completed 06/06/2020 60420 Paring/Cut Benign Lesion 2 To 4 Completed Medical Devices Description No Information Available Encounters Description No Information Available Assessments Date Code Description Provider 10/17/2020 B35.1 Tinea unguium Meoñ Key, DPM 10/17/2020 E11.42 Type 2 diabetes mellitus with di abetic polyneuropathy Meño Key, DPM 10/17/2020 L84 Corns and callosities Meño Key, DPM 08/08/2020 B35.1 Tinea unguium Meño Key, DPM 08/08/2020 E11.42 Type 2 diabetes mellitus with di abetic polyneuropathy Meño Key, DPM 08/08/2020 L84 Corns and callosities Meño Key, DPM 06/06/2020 B35.1 Tinea unguium Meño Key, DPM 06/06/2020 E11.42 Type 2 diabetes mellitus with di abetic polyneuropathy Meño Key, SONIAM 06/06/2020 L84 Corns and callosities Meño Key DPM Plan of Treatment Future Appointment(s):* 12/26/2020 2:30 pm - Meño Key DPM at [place] [facility] Functional Status Description No Information Available Mental Status Description No Information Available Referrals Description No Information Available
--- OUTSIDE RECORDS SUMMARY | 2020-12-08 19:21 | CCD | Continuity of Care Document ---
Author Author Reema KEY DPM Organization Unknown Address [address] [place] [address], [address] [place] [address] Phone [phone] Care Team Providers Care Rental Clerk Tool [employer] Equipment Name Role Phone MADIHA GoodM [phone] Problems Active Problems Provider Date Bunion Meño [...] Information Available Procedures Date Code Description Status 08/08/2020 55093 Debridement 6-10 Nails Electric Completed 08/08/2020 86048 Paring/Cut Benign Lesion 2 To 4 Completed 06/06/2020 09911 Debridement 6-10 [employer] Completed 06/06/2020 48144 Paring/Cut Benign Lesion 2 To 4 Completed Medical Devices Description No Information Available Encounters Description No Information Available Assessments Date Code Description Provider 08/08/2020 B35.1 Tinea unguium Meño Key, ESCOBAR 08/08/2020 E11.42 Type 2 diabetes mellitus with di abetic polyneuropathy Meño Key, ESCOBAR 08/08/2020 L84 Corns and callosities Meño Key DPM 06/06/2020 B35.1 Tinea unguium Meño Key, ESCOBAR 06/06/2020 E11.42 Type 2 diabetes mellitus with di abetic polyneuropathy Meño Key DPM 06/06/2020 L84 Corns and callosities Meño Key DPM Plan of Treatment Future Appointment(s):* 12/26/2020 2:30 pm - Meño Key DPM at [place] [facility] Functional Status Description No Information Available Mental Status Description No Information Available Referrals Description No Information Available
--- OUTSIDE RECORDS SUMMARY | 2020-12-08 19:22 | CCD ---
Author Author [facility] Organization [facility] Address Unknown Phone Unavailable Care Team Providers Care Optical Lathe Operator Name Role Phone EFRAIN, B NOVA CIGARETTE BOOK MAKER Unavailable Unavailable EFRAIN, B NOVA CIGARETTE BOOK MAKER Unavailable Unavailable EFRAIN, B NOVA CIGARETTE BOOK MAKER Unavailable Unavailable EFRAIN, B NOVA CIGARETTE BOOK MAKER Unavailable Unavailable EFRAIN, B NOVA CIGARETTE BOOK MAKER Unavailable Unavailable EFRAIN, B NOVA CIGARETTE BOOK MAKER Unavailable Unavailable EFRAIN, B NOVA CIGARETTE BOOK MAKER Unavailable Unavailable EFRAIN, B NOVA CIGARETTE BOOK MAKER Unavailable Unavailable EFRAIN, B NOVA CIGARETTE BOOK MAKER Unavailable Unavailable EFRAIN, B NOVA CIGARETTE BOOK MAKER Unavailable Unavailable EFRAIN, B NOVA CIGARETTE BOOK MAKER Unavailable Unavailable EFRAIN, B NOVA CIGARETTE BOOK MAKER Unavailable Unavailable EFRAIN, B NOVA CIGARETTE BOOK MAKER Unavailable Unavailable EFRAIN, B NOVA CIGARETTE BOOK MAKER Unavailable Unavailable EFRAIN, B NOVA CIGARETTE BOOK MAKER Unavailable Unavailable EFRAIN, B NOVA CIGARETTE BOOK MAKER Unavailable Unavailable EFRAIN, B NOVA CIGARETTE BOOK MAKER Unavailable Unavailable EFRAIN, B NOVA CIGARETTE BOOK MAKER Unavailable Unavailable EFRAIN, B NOVA CIGARETTE BOOK MAKER Unavailable Unavailable EFRAIN, B NOVA CIGARETTE BOOK MAKER Unavailable Unavailable EFRAIN, B NOVA CIGARETTE BOOK MAKER Unavailable Unavailable EFRAIN, B NOVA CIGARETTE BOOK MAKER Unavailable Unavailable EFRAIN, B NOVA CIGARETTE BOOK MAKER Unavailable Unavailable EFRAIN, B NOVA CIGARETTE BOOK MAKER Unavailable Unavailable EFRAIN, B NOVA CIGARETTE BOOK MAKER Unavailable Unavailable EFRAIN, B NOVA CIGARETTE BOOK MAKER Unavailable Unavailable EFRAIN, B NOVA CIGARETTE BOOK MAKER Unavailable Unavailable EFRAIN, B NOVA CIGARETTE BOOK MAKER Unavailable Unavailable EFRAIN, B NOVA CIGARETTE BOOK MAKER Unavailable Unavailable EFRAIN, B NOVA CIGARETTE BOOK MAKER Unavailable Unavailable EFRAIN, B NOVA CIGARETTE BOOK MAKER Unavailable Unavailable EFRAIN, B NOVA CIGARETTE BOOK MAKER Unavailable Unavailable EFRAIN, B NOVA CIGARETTE BOOK MAKER Unavailable Unavailable EFRAIN, B NOVA CIGARETTE BOOK MAKER Unavailable Unavailable EFRAIN, B NOVA CIGARETTE BOOK MAKER Unavailable Unavailable EFRAIN, B NOVA CIGARETTE BOOK MAKER Unavailable Unavailable EFRAIN, B NOVA CIGARETTE BOOK MAKER Unavailable Unavailable EFRAIN, B NOVA CIGARETTE BOOK MAKER Unavailable Unavailable EFRAIN, B NOVA CIGARETTE BOOK MAKER Unavailable Unavailable EFRAIN, B NOVA CIGARETTE BOOK MAKER Unavailable Unavailable EFRAIN, B NOVA CIGARETTE BOOK MAKER Unavailable Unavailable EFRAIN, B NOVA CIGARETTE BOOK MAKER Unavailable Unavailable EFRAIN, B NOVA CIGARETTE BOOK MAKER Unavailable Unavailable EFRAIN, B NOVA CIGARETTE BOOK MAKER Unavailable Unavailable EFRAIN, B NOVA CIGARETTE BOOK MAKER Unavailable Unavailable EFRAIN, B NOVA CIGARETTE BOOK MAKER Unavailable Unavailable EFRAIN, B NOVA CIGARETTE BOOK MAKER Unavailable Unavailable EFRAIN, B NOVA CIGARETTE BOOK MAKER Unavailable Unavailable EFRAIN, B NOVA CIGARETTE BOOK MAKER Unavailable Unavailable EFRAIN, B NOVA CIGARETTE BOOK MAKER Unavailable Unavailable EFRAIN, B NOVA CIGARETTE BOOK MAKER Unavailable Unavailable EFRAIN, B NOVA CIGARETTE BOOK MAKER Unavailable Unavailable EFRAIN, B NOVA CIGARETTE BOOK MAKER Unavailable Unavailable EFRAIN, B NOVA CIGARETTE BOOK MAKER Unavailable Unavailable EFRAIN, B NOVA CIGARETTE BOOK MAKER Unavailable Unavailable EFRAIN, B NOVA CIGARETTE BOOK MAKER Unavailable Unavailable EFRAIN, B NOVA CIGARETTE BOOK MAKER Unavailable Unavailable EFRAIN, B NOVA CIGARETTE BOOK MAKER Unavailable Unavailable EFRAIN, B NOVA CIGARETTE BOOK MAKER Unavailable Unavailable EFRAIN, B NOVA CIGARETTE BOOK MAKER Unavailable Unavailable EFRAIN, B NOVA CIGARETTE BOOK MAKER Unavailable Unavailable EFRAIN, B NOVA CIGARETTE BOOK MAKER Unavailable Unavailable Re-disclosure Warning The records that you are about to access may contain information from federally-assisted alcohol or drug abuse programs. If such information is present, then the following federally mandated warning applies: This information has been disclosed to you from records protected by federal confidentiality rules (42 CFR part 2). The federal rules prohibit you from making any further disclosure of this information unless further disclosure is expressly permitted by the written consent of the person to whom it pertains or as otherwise permitted by 42 CFR part 2. A general authorization for the release of medical or other information is NOT sufficient for this purpose. The Federal rules restrict any use of the information to criminally investigate or prosecute any alcohol or drug abuse patient.The records that you are about to access may contain highly sensitive health information, the redisclosure of which is protected by Article 27-F of the [facility] Public Health law. If you continue you may have access to information: Regarding HIV / AIDS; Provided by facilities licensed or operated by the [facility] Office of Mental Health; or Provided by the [facility] Office for People With Developmental Disabilities. If such information is present, then the following [facility] mandated warning applies: This information has been disclosed to you from confidential records which are protected by state law. State law prohibits you from making any further disclosure of this information without the specific written consent of the person to whom it pertains, or as otherwise permitted by law. Any unauthorized further disclosure in violation of state law may result in a fine or long term sentence or both. A general authorization for the release of medical or other information is NOT sufficient authorization for further disc losure. Family History Family Member Name Family Member Gender Family Member Status Date o f Status Description Data Source(s) Unknown Male Problem [facility] ([facility] () Unknown Unknown Problem [facility] ([facility], ) Unknown Female Problem [facility] ([facility] ) Encounters Encounter Providers Location Date Indications Data Source(s ) Outpatient Attender: NOVA ZUNIGA NP Physical Therapy 10:45:00 AM EDT [facility] ([facility] ) Outpatient Attender: NOVA ZUNIGA NP Physical Therapy 09:30:00 AM EST [facility] ([facility] ) Outpatient Attender: NOVA ZUNIGA NP Physical Therapy 10:30:00 AM EDT [facility] ([facility]) Immunizations Vaccine Date Status Description Data Source(s) COVID-19 VACCINE Moderna 05/16/2020 12:00:00 AM EDT completed [facility] Vaccine Series Complete: YESThis Data wa s Submitted to [facility]. COVID-19 VACCINE, MRNA-1273, LNP-S (MODERNA)/PF 05/16/2020 1 2:00:00 AM EDT completed [facility] COVID-19 VACCINE, MRNA-1273, LNP-S (MODERNA)/PF 04/21/2020 1 2:00:00 AM EST completed [facility] Medications Medication Brand Name Start Date Product Form Dose Route Admi nistrative Instructions Pharmacy Instructions Status Indications Reaction Description Data Source(s) 1.5 ML Insulin Glargine 300 UNT/ML Pen Injector [Toujeo] Amadeo Mclean 11/17/2019 12:00:00 AM EDT active [facility] ([facility]) Insurance Providers Payer name Policy type / Coverage type Policy ID Covered alliance party ID Covered alliance party's relationship to castellanos Policy Castellanos Plan Information Ghi FHP-(DO Not Use) Medigap Part B [id number] Self [id number] Ghi FHP-(DO Not Use) Medigap Part B [id number] [id number] Self [id number] Ghi FHP-(DO Not Use) Medigap Part B [id number] 2.16.840.1.535035.3.227.99.991.435564.0 Self [id number] Ghi FHP-(DO Not Use) Medigap Part B [id number] 2.16.840.1.372874.3.227.99.991.027386.0 Self [id number] Ghi FHP-(DO Not Use) Medigap Part B [id number] 2.16.840.1.238897.3.227.99.991.633197.0 Self [id number] Ghi FHP-(DO Not Use) Medigap Part B [id number] 2.16.840.1.422796.3.227.99.991.788703.0 Self [id number] Medicaid P [id number] S [id number] MEDICAID M [id number] Self [id number] Medicaid P [id number] S [id number] Medicaid S [id number] S [id number] Managed Care - Community Plan [facility] P [id number] S [id number] [facility] [place] () Workers Compensation [id number] 2.16.840.1.962[id number] Self [id number] [place] () Workers Compensation [id number] 2.16.840.1.551982.3.227.99.991.871998.0 Self [id number] [facility] [place] () Workers Compensation [id number] 2.16.840.1.446192.3.227.99.991.889497.0 Self [id number] [place] () Workers Compensation [id number] 2.16.840.1.950327.3.227.99.991.535446.0 Self [id number] [place] () Workers Compensation [id number] 2.16.840.1.591011.3.227.99.991.799048.0 Self [id number] [place] () Workers Compensation [id number] Self [place] () Workers Compensation [id number] 2.16.840.1.961743.3.227.99.991.255440.0 Self [id number] Managed Care - Community Plan [facility] P [id number] S [id number] Managed Care [facility] Community Plan P [id number] S [id number] MEDICAID [id number] SP [id number] Medicaid [place] Medigap Part B [id number] 2.16.840.1.457916.3.227.99 .991.816748.0 Self [id number] [facility] COMMUNITY PLAN MCDO [id number] SP [id number] [facility] [id number] 2.16840.1.852490.3.227.99.936.44537.0 Self [id number] [facility] [id number] 2.16840.1.462099.3.227.99.936.04255.0 Self [id number] UN COMMUNITY PLAN [facility] [id number] SP [id number] [facility] [id number] 2.16840.1.480851.3.227.99.936.31588.0 Self [id number] [facility] [id number] 2.160.1.727373.3.227.99.936.11903.0 Self [id number] [facility] [id number] 2.160.1.981591.3.227.99.936.15685.0 Self [id number] [facility] [id number] 2.16840.1.501126.3.227.99.936.39935.0 Self [id number] [facility] [id number] 2.840.1.461122.3.227.99.936.30697.0 Self [id number] UN COMMUNITY PLAN [facility] [id number] SP [id number] [facility] COMMUNITY PLAN [facility] [id number] SP [id number] [facility] COMMUNITY PLAN [facility] [id number] SP [id number] [facility] [id number] SP [id number] [facility] Comm Dual Plan Commercial [id number] 2.0.1.666248.3.22 7.99.936.28812.0 Self [id number] [place] Medigap Part B [id number] 2.0.1.646586.3.227.99.936.32041.0 Self V [id number] [place] Medigap Part B [id number] 2.0.1.848429.3.227.99 .991.701279.0 Self [id number] [facility] Advantage Commercial [id number] 2.0.1.699985.3.227.99.991.007949.0 Self [id number] [facility] Comm Dual Plan Commercial [id number] 2.16840.1.717455.3.22 7.99.936.46379.0 Self [id number] [facility] O [id number] S [id number] [facility] Health Maintenance Organization (HMO) [id number] 2.0.1.069811.3.227.99.8646.24642.0 Self [id number] [facility] Community Plan Commercial [id number] 2.0.1.647222.3.22 7.99.991.808528.0 Self [id number] [facility] Community Plan Commercial [id number] 20.1.842008.3.22 7.99.991.399844.0 Self [id number] [facility] Community Plan Commercial [id number] 2.0.1.763336.3.22 7.99.991.378671.0 Self [id number] [facility] Hmo Commercial [id number] 2.0.1.535676.3.227.99.3598.74489.0 Self [id number] [facility] Community Plan Commercial [id number] 20.1.791290.3.22 7.99.991.735080.0 Self [id number] [facility] Community Plan Commercial [id number] 20.1.162942.3.22 7.99.991.178853.0 Self [id number] [facility] Community Plan Commercial [id number] 2.0.1.684868.3.22 7.99.991.311633.0 Self [id number] [facility] COMMUNITY PLAN MCDHMO [id number] SP [id number] [facility] Health Maintenance Organization (HMO) [id number]4708.0 Self [id number] [facility] [id number] Self Medicaid [place] Medigap Part B [id number] 6551.0 Self [facility] Health Maintenance Organization (HMO) 2.0.1.246[id number] Self MEDICAID [id number] SP [id number] [facility] COMMUNITY PLAN MCDHMO [id number] SP [id number] MEDICAID [id number] SP [id number] MEDICAID P [id number] S [id number] HU[employer] GOLD [id number] SP [id number] Medicaid Dental S UNAVAILABLE O UN AVAILABLE HUMANA GOLD [id number] SP [id number] HUMANA PPO [id number] SP [id number] HUMANA PPO [id number] SP [id number] MEDICARE BLUE PPO [id number] SP [id number] MEDICARE COMPLETE [id number] SP [id number] MEDICARE COMPLETE [id number] SP [id number] MEDICARE BLUE PPO 306 [id number] SP [id number] EXCELLUS BCBS B [id number] S [id number] MEDICARE BLUE PPO [id number] SP [id number] MEDICARE BLUE PPO 306 [id number] SP [id number] MEDICAID [id number] SP [id number] MEDICARE BLUE PPO 306 [id number] SP [id number] [place] Commercial [id number] Self [id number] Medicaid [place] Medigap Part B [id number] Self [id number] Blue Shield [employer] Advantage Commercial [id number] Self [id number] [place] Commercial [id number] Self [id number] [place] Commercial [id number] Self [id number] [place] Commercial [id number] Self [id number] [place] Commercial [id number] Self [id number] [place] Commercial [id number] Self [id number] [place] Medigap Part B [id number] Self V [id number] Medicaid Medicaid [id number] .[id number] S elf [id number] [facility] Comm Dual Plan Commercial [id number] .1.003543.3.22 7.99.936.91527.0 Self [id number] [place] Medigap Part B [id number] Self V [id number] Medicaid Medicaid [id number] S elf [id number] [facility] Comm Dual Plan Commercial [id number] 2.16.840.1.670411.3.22 7.99.936.49274.0 Self [id number] [place] Medigap Part B [id number] 2.16.840.1.587821.3.227.99.936.11350.0 Self V [id number] Medicaid Medicaid [id number] 2.16.840.1.223278.3.227.99.936.19973.0 S elf [id number] [facility] Comm Dual Plan Commercial [id number] 2.16.840.1.665713.3.22 7.99.936.02794.0 Self [id number] [place] Medigap Part B [id number]9.936.70551.0 Self V [id number] Medicaid Medicaid [id number] 2.[id number] S f [id number] [facility] Dual Plan Commercial [id number] 2.16.840.1.252059.3.22 7.99.936.78188.0 Self [id number] [place] Medigap Part B [id number] Self V [id number] Medicaid Medicaid [id number] [id number] S [facility] [id number] Problems, Conditions, and Diagnoses No Information Surgeries/Procedures Procedure Description Date Indications Data Source(s) PARING/CUTTING BENIGN HYPERKERATOTIC LESION 2-4 2020 12:00:00 AM EDT [facility] ([facility] DEBRIDEMENT NAIL ANY METHOD 6/> 10/17/2020 12:00:00 AM EDT [facility] ([facility] PARING/CUTTING BENIGN HYPERKERATOTIC LESION 2-4 2020 12:00:00 AM EDT [facility] ([facility] DEBRIDEMENT NAIL ANY METHOD 08/08/2020 12:00:00 AM EDT [facility] ([facility] Diabetic Foot Exam 08/04/2020 12:00:00 AM EDT [facility] ([facility]) PARING/CUTTING BENIGN HYPERKERATOTIC LESION 2-4 2020 12:00:00 AM EDT [facility] ([facility] DEBRIDEMENT NAIL ANY METHOD 06/06/2020 12:00:00 AM EDT [facility] ([facility] PARING/CUTTING BENIGN HYPERKERATOTIC LESION 2-4 2020 12:00:00 AM EST [facility] ([facility] DEBRIDEMENT NAIL ANY METHOD 03/28/2020 12:00:00 AM EST [facility] ([facility] PARING/CUTTING BENIGN HYPERKERATOTIC LESION 2-4 2019 12:00:00 AM EST [facility] ([facility] DEBRIDEMENT NAIL ANY METHOD 01/18/2020 12:00:00 AM EST [facility] ([facility] DEBRIDEMENT NAIL ANY METHOD 11/10/2019 12:00:00 AM EDT [facility] ([facility] Results ID Date Data Source [id number] 08/04/2020 10:57:00 AM EDT [facility] ([facility]) Name Value Range Interpretation Code Description Data Gita rce(s) Supporting Document(s) Glucose [Mass/volume] in Serum or Plasma 124 [facility] ([facility]) Hemoglobin A1c/Hemoglobin.total in Blood 7.1 [facility] ([facility]) ID Date Data Source [id number] 02/15/2020 10:26:00 AM EST [facility] ([facility]) Name Value Range Interpretation Code Description Data Gita rce(s) Supporting Document(s) Glucose [Mass/volume] in Serum or Plasma 120 [facility] ([facility] ) Hemoglobin A1c/Hemoglobin.total in Blood 6.5 [facility] ([facility]) ID Date Data Source [id number] 11/17/2019 11:15:00 AM EDT [facility] ([facility] ) Name Value Range Interpretation Code Description Data Gita rce(s) Supporting Document(s) Hemoglobin A1c/Hemoglobin.total in Blood 7.5 [facility] ([facility]) Glucose [Mass/volume] in Serum or Plasma 201 [facility] ([facility]) ID Date Data Source [id number] 11/17/2019 10:30:00 AM EDT [facility] ([facility] ) Name Value Range Interpretation Code Description Data Gita rce(s) Supporting Document(s) Microalbumin [Mass/volume] in Urine 8.9 mg/L [facility] Creatinine [Mass/volume] in Urine 77.5 mg/dL [facility] Microalbumin/Creatinine [Mass Ratio] in Urine 11.4 MCG/MG 0.0-30.0 [facility] ([facility] THE [employer] STATES THAT MICROALBUMINURIA IS PRESENT IF THE MICROALBUMIN/CREATININE RATIO EXCEEDS 30 MCG/MG. THE THRESHOLD FOR CLINICAL ALBUMINURIA IS REACHED AT 300 MCG/MG. THE CLASSIFICATION OF A PATIENT SHOULD BE BASED UPON AT LEAST 2 OF 3 ABNORMAL RESULTS ON SPECIMENS COLLECTED WITHIN A 3 TO 6 MONTH TIME FRAME. Procedure Social History No Information Vital Signs ID Date Data Source UNK Name Value Range Interpretation Code Description Data Source(s) Systolic blood pressure 114 mm[Hg] 114 mm[Hg] [facility] ([facility]) Diastolic blood pressure 84 mm[Hg] 84 mm[Hg] [facility] ([facility]) Heart rate 97 /min 97 /min [facility] ([facility] ) Body temperature 96.2 [degF] 96.2 [degF] [facility] ([facility] ) Body height 63 [in_i] 63 [in_i] [facility] ([facility] ) 5'3" Body weight 184.50 [lb_av] 184.50 [lb_av] [facility] ([facility] ) Body mass index (BMI) [Ratio] 32.7 kg/m2 32.7 k g/m2 [facility] ([facility] ) Oxygen saturation in Arterial blood by Pulse oximetry 91 % 91 % [facility] ([facility] ) Systolic blood pressure 115 mm[Hg] 115 mm[Hg] [facility] ([facility]) Diastolic blood pressure 68 mm[Hg] 68 mm[Hg] [facility] ([facility] ) Heart rate 87 /min 87 /min [facility] ([facility] ) Body temperature 97.0 [degF] 97.0 [degF] [facility] ([facility] ) Body height 63 [in_i] 63 [in_i] [facility] ([facility] ) 5'3" Body weight 183.00 [lb_av] 183.00 [lb_av] [facility] ([facility] ) Body mass index (BMI) [Ratio] 32.4 kg/m2 32.4 k g/m2 [facility] ([facility] ) Oxygen saturation in Arterial blood by Pulse oximetry 96 % 96 % [facility] ([facility] ) Systolic blood pressure 128 mm[Hg] 128 mm[Hg] [facility] ([facility]) Diastolic blood pressure 70 mm[Hg] 70 mm[Hg] [facility] ([facility] ) Heart rate 89 /min 89 /min [facility] ([facility] ) Body height 63 [in_i] 63 [in_i] [facility] ([facility] ) 5'3" Body weight 190.50 [lb_av] 190.50 [lb_av] [facility] ([facility] ) Body mass index (BMI) [Ratio] 33.7 kg/m2 33.7 k g/m2 [facility] ([facility] ) Oxygen saturation in Arterial blood by Pulse oximetry 94 % 94 % [facility] ([facility] )
[2020-12-08 19:47] LABS: ATYPICAL LYMPH 11 % (0-5); BASOPHILS 1 % (0-1); EOSINOPHILS 1 % (0-3); LYMPHOCYTES 24 % (16-44); MONOCYTES 5 % (0-5); NEUTROPHILS 58 % (28-66)
[2020-12-08 19:48] LABS: PLATELET ESTIMATE NORMAL (NORMAL)
[2020-12-08 19:50] LABS: ALBUMIN 3.2 GM/DL (3.2-5.2); ALT/SGPT 13 U/L (12-78); BILIRUBIN,DIRECT 0.1 MG/DL (0.0-0.2); BILIRUBIN,TOTAL 0.2 MG/DL (0.2-1.0); BLOOD UREA NITROGEN 10 MG/DL (7-18); CALCIUM LEVEL 9.3 MG/DL (8.8-10.2); CARBON DIOXIDE LEVEL 29 MEQ/L (21-32); CHLORIDE LEVEL 103 MEQ/L (98-107); CK-MB VALUE MASS < 1.0 NG/ML (<3.6); CPK CREATINE PHOSPHOKINASE 54 U/L (26-192); CREATININE FOR GFR 0.78 MG/DL (0.55-1.30); FREE T4 1.05 NG/DL (0.76-1.46); GLOMERULAR FILTRATION RATE > 60.0 (>45); GLUCOSE, FASTING 229 MG/DL (70-100); LIPASE 112 U/L (73-393); MB/CK RELATIVE INDEX 1.85 (< OR =4); POTASSIUM SERUM 4.2 MEQ/L (3.5-5.1); SODIUM LEVEL 137 MEQ/L (136-145); TOTAL PROTEIN 6.9 GM/DL (6.4-8.2); TROPONIN I < 0.02 NG/ML (< 0.10)
[2020-12-08 20:27] LABS: NT-PRO BNP 250 PG/ML (<125)
[2020-12-08] MEDS ORDERED: ISOVUE-370 76% 100ML VIAL As Ordered ONE (20:35)
--- NOTE | 2020-12-08 22:28 | REPVR ---
PROCEDURE INFORMATION: Exam: CT Chest With Contrast; Diagnostic Exam date and time: 12/08/2020 8:53 PM Age: 65 years old Clinical indication: Other: Pericarditis vs pericardial effusion vs hiatal hernia TECHNIQUE: Imaging protocol: Diagnostic computed tomography of the chest with contrast. Radiation optimization: All CT scans at this facility use at least one of these dose optimization techniques: automated exposure control; mA and/or kV adjustment per patient size (includes targeted exams where dose is matched to clinical indication); or iterative reconstruction. Contrast material: ISOVUE 370; Contrast volume: 100 ml; Contrast route: INTRAVENOUS (IV); COMPARISON: CT Chest with contrast 08/17/2016 1:56 PM FINDINGS: Lungs: Slight scattered pulmonary interstitial prominence. Pleural spaces: Unremarkable. No pneumothorax. No pleural effusion. Heart: Unremarkable. No cardiomegaly. No pericardial effusion. Pulmonary arteries: The main pulmonary artery measures 26 mm. No pulmonary embolism is identified. Aorta: The ascending thoracic aorta measures 29 mm. Lymph nodes: Upper normal anterior mediastinal node anterior to the aortic arch which is slightly increased since the prior study. Gallbladder and bile ducts: Status post cholecystectomy. Bones/joints: Slight anterior wedge configuration of T7-T11 which appear to be chronic. There is minimal degenerative spurring in the mid and lower thoracic spine. Soft tissues: Unremarkable. IMPRESSION: 1. Upper normal anterior mediastinal node which is slightly increased since 08/17/2016. 2. Status post cholecystectomy. 3. Otherwise negative CT chest. No pericardial effusion is seen. No hiatal hernia. Electronically signed by: Bert Goodson On 12/08/2020 22:27:54 PM
--- NOTE | 2020-12-08 22:35 | REPVR ---
PROCEDURE INFORMATION: Exam: CT Abdomen And Pelvis With Contrast Exam date and time: 12/08/2020 8:53 PM Age: 65 years old Clinical indication: Other: Pericarditis vs pericardial effusion vs hiatal hernia TECHNIQUE: Imaging protocol: Computed tomography of the abdomen and pelvis with contrast. Radiation optimization: All CT scans at this facility use at least one of these dose optimization techniques: automated exposure control; mA and/or kV adjustment per patient size (includes targeted exams where dose is matched to clinical indication); or iterative reconstruction. Contrast material: ISOVUE 370; Contrast volume: 100 ml; Contrast route: INTRAVENOUS (IV); COMPARISON: CT Chest with contrast 08/17/2016 1:56 PM FINDINGS: Lungs: Slight bibasilar interstitial prominence. Diaphragm: No hiatal hernia. Liver: Normal. No mass. Gallbladder and bile ducts: Status post cholecystectomy. Pancreas: Normal. No ductal dilation. Spleen: Normal. No splenomegaly. Adrenal glands: Normal. No mass. Kidneys and ureters: There is a right renal cyst measuring 5 mm which is too small to characterize. Stomach and bowel: Unremarkable. No obstruction. No mucosal thickening. Appendix: Status post appendectomy. Intraperitoneal space: Unremarkable. No free air. No significant fluid collection. Vasculature: There is moderate atherosclerotic calcification of the abdominal aorta with extension into the iliac arteries. There appears to be right common iliac artery stent. Lymph nodes: Unremarkable. No enlarged lymph nodes. Urinary bladder: Unremarkable as visualized. Reproductive: Unremarkable as visualized. Bones/joints: Facet arthropathy of the lower lumbar spine with mild anterolisthesis of L4 relative to L5. Soft tissues: Unremarkable. IMPRESSION: 1. Status post cholecystectomy and appendectomy. 2. Otherwise negative CT abdomen/pelvis. No hiatal hernia. COMMENTS: Consistent with the [employer]'s Incidental Findings Committee white paper (J Am Ben Radiol 2018): Any incidental renal lesion less than 1 cm or classified as too small to characterize, or any incidental cystic renal lesion characterized as simple-appearing, is likely benign. No follow-up imaging is recommended for these lesions per consensus recommendations based on imaging criteria. Electronically signed by: Bert Goodson On 12/08/2020 22:35:14 PM
[2020-12-09] MEDS ORDERED: GI COCKTAIL 50ML BTL(HYOSCYAMINE/MAALOX/LIDOCAINE VISCOUS)(1:3:1) PO ONE (00:10)
[2020-12-09 01:18] VITALS: BP 164/90
--- NOTE | 2020-12-09 08:30 | ECGEPIP ---
[facility] - ED Test Date: 2020-12-08 Pat Name: JANAE PAEZ Department: Room: - Gender: Female Single Needle Operator: DEREJE : 1955 Requested By: CHANA Mcginnis Order Number: [id number] Reading MD: Edmond Booker Measurements Intervals [place] Rate: 96 P: 56 RI: 160 QRS: 19 QRSD: 78 T: 31 QT: 344 QTc: 434 Interpretive Statements Normal sinus rhythm Low voltage QRS Possible Inferior infarct , age undetermined SIMILAR TO 05/17/17 Electronically Signed on 12-09-2020 8:29:59 EDT by Edmond Booker
== END 2020-12-09 01:22 | disposition home or self-care (01) ==
LOC: M ED 17:29
DX: R10.13 Epigastric pain (principal); R11.0 Nausea; I10 Essential (primary) hypertension; E11.9 Type 2 diabetes mellitus without complications; F33.9 Major depressive disorder, recurrent, unspecified; E78.5 Hyperlipidemia, unspecified; K21.9 Gastro-esophageal reflux disease without esophagitis; Z79.899 Other long term (current) drug therapy; Z79.4 Long term (current) use of insulin; Z79.01 Long term (current) use of anticoagulants; F17.210 Nicotine dependence, cigarettes, uncomplicated
CPT/HCPCS: 36415; 71045; 71260; 74177; 80048; 80076; 82550; 82553; 83690; 83880; 84439; 84443; 84484; 85025; 85610; 85730; 93005; 93041; 94760; 99285; Q9967

== ENCOUNTER → 2021-01-30 | Outpatient (CLI) | payer OTHER, MEDICARE ==
[~2021-01-30] MED LIST changes: +VERA180T42 PO; -VERA180T50 PO
--- NOTE | 2021-01-31 08:46 | DEXAMM ---
INDICATION: OSTEO SCREENING. COMPARISON: 11/05/2012, 06/09/2003. TECHNIQUE: Bone density was measured using dual-energy x-ray absorptiometry (DEXA). FINDINGS: AP SPINE L1-L4 BMD 1.265 g/cm2 Young Adult T-Score 0.6 Age Matched Z-Score 2.2. LT FEMUR, TOTAL BMD 0.894 g/cm2 Young Adult T-Score -0.9 Age Matched Z-Score 0.4. LT NECK BMD 0.926 g/cm2 Young Adult T-Score -0.8 Age Matched Z-Score 0.8. RT FEMUR, TOTAL BMD 0.903 g/cm2 Young Adult T-Score -0.8 Age Matched Z-Score 0.5. RT NECK BMD 0.890 g/cm2 Young Adult T-Score -1.1 Age Matched Z-Score 0.5. IMPRESSION: There is normal bone density of the spine. There is normal bone density of the left hip. There is low bone density of the right hip. The density of the spine has decreased 9.1% since the initial exam on 06/09/2003. The density of the spine decreased 2.1% since most recent exam on 11/05/2012. The density of the left hip has decreased 20.7% since initial exam on 06/09/2003. The density of the left hip has decreased 9.9% since most recent exam on 11/05/2012. The density of the right hip has decreased 15.4% since the initial exam on 06/09/2003. The density of the right hip has decreased 8.0% since the most recent exam on 11/05/2012. FOLLOW-UP: Recommendation for the next bone density exam: 2 years. <Electronically signed by Rohan Blue > 01/31/21 [id number]
== END ==
LOC: M WHC 13:05
PROVIDERS: ATTEND Internal Medicine
DX: M85.851 Other specified disorders of bone density and structure, right thigh (principal); M85.852 Other specified disorders of bone density and structure, left thigh

== ENCOUNTER → 2021-04-17 | Outpatient (CLI) | payer OTHER ==
[~2021-04-17] MED LIST changes: +CALC500C16 PO; +LOSA100T45 PO; -LOSA100T50 PO; +LOSA50TA28 PO; +SERT50TA29 PO; +TOUJ300I2 SC
== END ==
LOC: M RAD 14:09
PROVIDERS: ATTEND Internal Medicine Hematology & Oncology
DX: R91.1 Solitary pulmonary nodule (principal)

== ENCOUNTER → 2021-04-27 | Outpatient (CLI) | payer OTHER | LOC: M WHC 08:48 | PROVIDERS: ATTEND Internal Medicine | DX: Z12.31 Encounter for screening mammogram for malignant neoplasm of breast (principal) ==

== ENCOUNTER 2021-05-14 06:22 | Emergency (ER) | payer OTHER ==
[~2021-05-14] VITALS: Ht 157.5 cm; Wt 82.8 kg
[2021-05-14 07:19] LABS: BASO # 0.2 10^3/uL (0.0-0.2); BASO % 1.1 % (0.0-1.0); EOS # 0.2 10^3/uL (0.0-0.5); EOS % 1.4 % (0.0-3.0); HEMATOCRIT 36.9 % (36.0-47.0); HEMOGLOBIN 11.7 g/dl (12.0-15.5); LYMPH # 2.6 10^3/uL (1.5-5.0); LYMPH % 19.9 % (24.0-44.0); MEAN CORPUSCULAR HEMOGLOBIN 27.3 pg (27.0-33.0); MEAN CORPUSCULAR HGB CONC 31.7 g/dl (32.0-36.5); MONO % 7.6 % (2.0-8.0); NEUTROPHILS # 9.1 10^3/uL (1.5-8.5); NEUTROPHILS % 69.5 % (36.0-66.0); PLATELET COUNT, AUTOMATED 435 10^3/uL (150-450); RED BLOOD COUNT 4.29 10^6/uL (4.00-5.40); WHITE BLOOD COUNT 13.1 10^3/uL (4.0-10.0)
[2021-05-14] MEDS ORDERED: GI COCKTAIL 50ML BTL(HYOSCYAMINE/MAALOX/LIDOCAINE VISCOUS)(1:3:1) PO ONE (07:20)
[2021-05-14 07:44] LABS: ALBUMIN 3.7 GM/DL (3.2-5.2); ALT/SGPT 20 U/L (12-78); BILIRUBIN,DIRECT < 0.1 MG/DL (0.0-0.2); BILIRUBIN,TOTAL 0.2 MG/DL (0.2-1.0); BLOOD UREA NITROGEN 12 MG/DL (7-18); CALCIUM LEVEL 9.3 MG/DL (8.8-10.2); CARBON DIOXIDE LEVEL 25 MEQ/L (21-32); CHLORIDE LEVEL 100 MEQ/L (98-107); CREATININE FOR GFR 0.92 MG/DL (0.55-1.30); GLOMERULAR FILTRATION RATE > 60.0 (>45); GLUCOSE, FASTING 110 MG/DL (70-100); LIPASE 157 U/L (73-393); POTASSIUM SERUM 4.7 MEQ/L (3.5-5.1); SODIUM LEVEL 133 MEQ/L (136-145); TOTAL PROTEIN 7.1 GM/DL (6.4-8.2)
[2021-05-14 07:54] LABS: CK-MB VALUE MASS 1.6 NG/ML (<3.6); MB/CK RELATIVE INDEX 0.98 (< OR =4)
[2021-05-14] MEDS ORDERED: ASPIRIN 81 MG CHEW TABLET PO ONE (08:00)
[2021-05-14] MEDS ORDERED: ISOVUE-370 76% 100ML VIAL As Ordered ONE (08:38)
[2021-05-14 09:41] LABS: CK-MB VALUE MASS 2.3 NG/ML (<3.6); MB/CK RELATIVE INDEX 3.59 (< OR =4)
[2021-05-14] MEDS ORDERED: HEPARIN DRIP 25,000 UNITS in IV 1 EA IV SCH (09:45)
[2021-05-14] MEDS ORDERED: HEPARIN SOD (PORCINE) 5000UNITS/ML 1ML VIAL/SYRINGE IV ONE (09:45)
[2021-05-14] MEDS ORDERED: CLOPIDOGREL 300 MG TAB (PLAVIX) PO ONE (09:45)
[2021-05-14] MEDS ORDERED: FAMOTIDINE 20 MG TAB PO ONE (09:45)
[2021-05-14 10:04] LABS: INR 0.86; PROTHROMBIN TIME 12.1 SECONDS (12.7-14.5)
[2021-05-14 10:05] LABS: PARTIAL THROMBOPLASTIN TIME 22.3 SECONDS (25.9-37.0)
[2021-05-14 11:31] LABS: RSV AMPLIFICATION NEGATIVE (NEGATIVE)
[2021-05-14 11:46] VITALS: BP 156/77
== END 2021-05-14 11:50 | disposition short-term general hospital (02) ==
LOC: M ED 06:22
DX: I21.4 Non-ST elevation (NSTEMI) myocardial infarction (principal); E11.9 Type 2 diabetes mellitus without complications; E78.5 Hyperlipidemia, unspecified; I10 Essential (primary) hypertension; F17.200 Nicotine dependence, unspecified, uncomplicated; Z79.899 Other long term (current) drug therapy; Z79.4 Long term (current) use of insulin
CPT/HCPCS: 71045; 71275; 80048; 80076; 82550; 82553; 83690; 84484; 85025; 85610; 85730; 87631; 93005; 93041; 94760; 96365; 99285; J1644; Q9967

== ENCOUNTER → 2021-06-01 | Outpatient (REF) | payer OTHER ==
[2021-06-01 18:34] LABS: BASOPHILS 1 % (0-1); EOSINOPHILS 2 % (0-3); LYMPHOCYTES 15 % (16-44); MONOCYTES 9 % (0-5); NEUTROPHILS 73 % (28-66); PLATELET ESTIMATE INCREASED (NORMAL)
[2021-06-01 18:35] LABS: HYPOCHROMASIA 1+
== END ==
LOC: M LAB REF 16:21
PROVIDERS: ATTEND Internal Medicine
DX: D72.9 Disorder of white blood cells, unspecified (principal)

== ENCOUNTER → 2021-06-09 | Outpatient (CLI) | payer OTHER ==
[2021-06-09 11:45] LABS: CHOLESTEROL RISK RATIO 2.704 (<5)
== END ==
LOC: M LAB 09:58
PROVIDERS: ATTEND Internal Medicine Cardiovascular Disease
DX: E78.5 Hyperlipidemia, unspecified (principal); R06.00 Dyspnea, unspecified

== ENCOUNTER → 2021-06-16 | Outpatient (CLI) | payer OTHER ==
[~2021-06-16] MED LIST changes: +RAMI1CAP21 PO
== END ==
LOC: M CARPUL 13:54
PROVIDERS: ATTEND Internal Medicine Cardiovascular Disease
DX: R94.31 Abnormal electrocardiogram [ECG] [EKG] (principal)

== ENCOUNTER → 2021-06-23 | Outpatient (CLI) | payer OTHER ==
[~2021-06-23] MED LIST changes: +GASTROGRAFIN SOLUTION 30ML (Q9963) As Ordered ONE; +ISOVUE-370 76% 100ML VIAL As Ordered ONE
== END ==
LOC: M RAD 13:31
PROVIDERS: ATTEND Internal Medicine Medical Oncology
DX: Z85.3 Personal history of malignant neoplasm of breast (principal)
CPT/HCPCS: 71260; 74177; Q9963; Q9967

== ENCOUNTER → 2021-08-03 | Outpatient (CLI) | payer OTHER, MEDICARE, MEDICAID ==
[~2021-08-03] MED LIST changes: +CALA180T PO; +FAMO1TAB11 PO; +FERR325T3 PO; -GASTROGRAFIN SOLUTION 30ML (Q9963) As Ordered ONE; -ISOVUE-370 76% 100ML VIAL As Ordered ONE; +METF10004 PO; +METO25TA4 PO; +PANT40TA29 PO; +TELM1TAB35 PO; +VENL75CA47 PO; +ZOLO100T PO
== END ==
LOC: M LABSMTC 09:47
PROVIDERS: ATTEND Anesthesiology
DX: Z01.818 Encounter for other preprocedural examination (principal); Z11.52 Encounter for screening for COVID-19

== ENCOUNTER 2021-08-08 07:21 | Day surgery (SDC) | payer OTHER ==
[~2021-08-08] VITALS: Ht 157.5 cm; Wt 76.2 kg
[~2021-08-08 07:21] MED LIST changes: +LIDOCAINE 2% 100MG/5ML SDV (FOR ANES.) As Ordered ONE; +NS 1,000 ML IV ONE; +fentaNYL 100 MCG/2 ML INJECTION As Ordered ONE; +propofoL 500 MG/50 ML VIAL As Ordered ONE
[2021-08-08] MEDS ORDERED: ONDANSETRON 4MG/2ML VIAL As Ordered ONE (08:10)
[2021-08-08] MEDS ORDERED: FAMO40TA3 PO (08:13)
[2021-08-08] MEDS ORDERED: VENL75TA2 PO (08:13)
[2021-08-08 09:25] VITALS: BP 122/68
== END 2021-08-08 09:50 | disposition home or self-care (01) ==
LOC: M OPP 07:21
PROVIDERS: ATTEND Internal Medicine Gastroenterology
DX: K64.8 Other hemorrhoids (principal); D50.9 Iron deficiency anemia, unspecified; K22.89 Other specified disease of esophagus; K29.70 Gastritis, unspecified, without bleeding; Z79.02 Long term (current) use of antithrombotics/antiplatelets; Z79.1 Long term (current) use of non-steroidal anti-inflammatories (NSAID); Z79.4 Long term (current) use of insulin; Z79.899 Other long term (current) drug therapy; Z86.74 Personal history of sudden cardiac arrest; Z87.891 Personal history of nicotine dependence
CPT/HCPCS: 43239; 45385; 88305; J2405; J3010

== ENCOUNTER 2021-09-02 17:08 | Emergency (ER) | payer OTHER ==
[~2021-09-02] VITALS: Ht 157.5 cm; Wt 77.3 kg
[~2021-09-02 17:08] MED LIST changes: -LIDOCAINE 2% 100MG/5ML SDV (FOR ANES.) As Ordered ONE; -NS 1,000 ML IV ONE; -fentaNYL 100 MCG/2 ML INJECTION As Ordered ONE; -propofoL 500 MG/50 ML VIAL As Ordered ONE
[2021-09-02 17:09] VITALS: BP 136/70
[2021-09-02] MEDS ORDERED: PRED20TA PO (19:02)
[2021-09-02] MEDS ORDERED: predniSONE 20 MG TAB PO ONE (19:05)
== END 2021-09-02 19:18 | disposition home or self-care (01) ==
LOC: M ED 17:08
DX: M16.12 Unilateral primary osteoarthritis, left hip (principal); M67.854 Other specified disorders of tendon, left hip; I25.2 Old myocardial infarction; E11.9 Type 2 diabetes mellitus without complications; I10 Essential (primary) hypertension; E78.5 Hyperlipidemia, unspecified; G43.909 Migraine, unspecified, not intractable, without status migrainosus; J44.9 Chronic obstructive pulmonary disease, unspecified; Z85.3 Personal history of malignant neoplasm of breast; E66.9 Obesity, unspecified; Z79.4 Long term (current) use of insulin; Z79.899 Other long term (current) drug therapy
CPT/HCPCS: 73502; 99283; J7512

== ENCOUNTER → 2021-10-17 | Outpatient (REF) | payer OTHER ==
[~2021-10-17] MED LIST changes: +PRED20TA PO
[2021-10-17 14:19] LABS: BASO # 0.1 10^3/uL (0.0-0.2); BASO % 1.4 % (0.0-1.0); EOS # 0.1 10^3/uL (0.0-0.5); EOS % 1.3 % (0.0-3.0); LYMPH # 2.4 10^3/uL (1.5-5.0); LYMPH % 24.9 % (24.0-44.0); MEAN CORPUSCULAR HEMOGLOBIN 24.1 pg (27.0-33.0); MEAN CORPUSCULAR HGB CONC 29.7 g/dl (32.0-36.5); MONO # 0.8 10^3/uL (0.0-0.8); NEUTROPHILS # 6.2 10^3/uL (1.5-8.5); NEUTROPHILS % 63.2 % (36.0-66.0); PLATELET COUNT, AUTOMATED 557 10^3/uL (150-450); RED BLOOD COUNT 4.57 10^6/uL (4.00-5.40); WHITE BLOOD COUNT 9.8 10^3/uL (4.0-10.0)
[2021-10-17 14:59] LABS: ALBUMIN 3.6 GM/DL (3.2-5.2); ALT/SGPT 14 U/L (12-78); BILIRUBIN,TOTAL 0.3 MG/DL (0.2-1.0); BLOOD UREA NITROGEN 16 MG/DL (7-18); CALCIUM LEVEL 9.7 MG/DL (8.8-10.2); CARBON DIOXIDE LEVEL 23 MEQ/L (21-32); CHLORIDE LEVEL 106 MEQ/L (98-107); CHOLESTEROL LEVEL 148 MG/DL (<200); CHOLESTEROL RISK RATIO 2.084 (<5); CREATININE FOR GFR 0.82 MG/DL (0.55-1.30); GLOMERULAR FILTRATION RATE > 60.0 (>45); GLUCOSE, FASTING 99 MG/DL (70-100); HDL CHOLESTEROL 71 MG/DL (>40); LDL CHOLESTEROL 64 MG/DL (<100); MAGNESIUM LEVEL 1.7 MG/DL (1.8-2.4); NON-HDL-C 77 MG/DL; POTASSIUM SERUM 4.3 MEQ/L (3.5-5.1); SODIUM LEVEL 136 MEQ/L (136-145); TOTAL PROTEIN 7.1 GM/DL (6.4-8.2); TRIGLYCERIDES LEVEL 64 MG/DL (<150)
== END ==
LOC: M LAB REF 13:42
PROVIDERS: ATTEND Internal Medicine
DX: D50.9 Iron deficiency anemia, unspecified (principal); E78.00 Pure hypercholesterolemia, unspecified; I10 Essential (primary) hypertension

== ENCOUNTER → 2022-01-16 | Outpatient (CLI) | payer OTHER ==
[~2022-01-16] MED LIST changes: +CLOP75TA99 PO; +ISOVUE-370 76% 100ML VIAL As Ordered ONE; -PLAV1TAB2 PO
== END ==
LOC: M RAD 15:48
PROVIDERS: ATTEND Nurse Practitioner
DX: C50.919 Malignant neoplasm of unspecified site of unspecified female breast (principal)
CPT/HCPCS: 71260; Q9967

== ENCOUNTER → 2022-01-25 | Outpatient (REF) | payer OTHER ==
[~2022-01-25] MED LIST changes: -ISOVUE-370 76% 100ML VIAL As Ordered ONE
[2022-01-25 18:33] LABS: MAU/CREAT RATIO 7.9 MCG/MG (0.0-30.0)
== END ==
LOC: M LAB REF 16:46
PROVIDERS: ATTEND Nurse Practitioner Family
DX: E11.65 Type 2 diabetes mellitus with hyperglycemia (principal)

== ENCOUNTER 2022-04-05 13:06 | Inpatient (IN) | payer MEDICARE ==
[~2022-04-05] VITALS: Ht 157.5 cm; Wt 86.4 kg
[2022-04-05] MEDS ORDERED: MORPHINE 2 MG/ML 1ML VIAL IV ONE (14:35)
[2022-04-05] MEDS ORDERED: LIDOCAINE 5% (LIDODERM) PATCH TD ONE (14:35)
[2022-04-05] MEDS ORDERED: ACETAMINOPHEN 500 MG TAB PO ONE (14:35)
[2022-04-05] MEDS ORDERED: ONDANSETRON 4MG 2ML VIAL IV ONE (14:35)
[2022-04-05] MEDS ORDERED: NS 1,000 ML IV ONE (14:35)
[2022-04-05 15:31] LABS: BASO # 0.1 10^3/uL (0.0-0.2); BASO % 0.6 % (0.0-1.0); HEMATOCRIT 40.8 % (36.0-47.0); LYMPH # 0.8 10^3/uL (1.5-5.0); LYMPH % 3.7 % (24.0-44.0); MEAN CORPUSCULAR HEMOGLOBIN 29.2 pg (27.0-33.0); MEAN CORPUSCULAR HGB CONC 31.9 g/dl (32.0-36.5); MEAN CORPUSCULAR VOLUME 91.7 fl (80.0-96.0); MONO # 1.2 10^3/uL (0.0-0.8); MONO % 5.7 % (2.0-8.0); NEUTROPHILS # 18.7 10^3/uL (1.5-8.5); PLATELET COUNT, AUTOMATED 410 10^3/uL (150-450); RED BLOOD COUNT 4.45 10^6/uL (4.00-5.40)
[2022-04-05] MEDS ORDERED: NS 1,590 ML in IV 1 EA IV ONE (15:40)
[2022-04-05] MEDS ORDERED: cefTRIAXone SOD 1 GM in D5W MINI-BAG PLUS 50 ML IV ONE ×2 (15:40→17:55)
[2022-04-05 16:02] LABS: ALBUMIN 3.6 G/DL (3.2-5.2); ALKALINE PHOSPHATASE 52 U/L (46-116); ALT/SGPT 13 U/L (7.0-40); AST/SGOT 19 U/L (<34); BILIRUBIN,TOTAL 0.5 MG/DL (0.3-1.2); BLOOD UREA NITROGEN 16 MG/DL (9-23); CALCIUM LEVEL 9.4 MG/DL (8.3-10.6); CARBON DIOXIDE LEVEL 26 MMOL/L (20-31); CHLORIDE LEVEL 104 MMOL/L (98-107); GLOMERULAR FILTRATION RATE > 60.0 (>45); GLUCOSE, FASTING 159 MG/DL (74-106); POTASSIUM SERUM 5.1 MMOL/L (3.5-5.1); RSV AMPLIFICATION NEGATIVE (NEGATIVE); SODIUM LEVEL 137 MMOL/L (136-145); TOTAL PROTEIN 6.3 G/DL (5.7-8.2)
[2022-04-05] MEDS ORDERED: AZITHROMYCIN INJ 500 MG, VIAL MATE ADAPTER 1 EACH in NS 250 ML IV ONE (17:55)
[2022-04-05] MEDS ORDERED: NS 1,000 ML IV SCH (19:10)
[2022-04-05] MEDS ORDERED: GLUCAGON INJ 1MG VIAL SC PRN (19:10)
[2022-04-05] MEDS ORDERED: ACETAMINOPHEN TAB 650MG DOSE (2X325MG) PO PRN (19:10)
[2022-04-05] MEDS ORDERED: carisoprodoL 350 MG TAB PO PRN (19:10)
[2022-04-05] MEDS ORDERED: DEXTROSE 50% 50ML SYRINGE IV PRN (19:10)
[2022-04-05] MEDS ORDERED: GLUCOSE 4GM CHEW TABLET PO PRN (19:10)
[2022-04-05] MEDS ORDERED: FERR32TA PO (19:49)
[2022-04-05] MEDS ORDERED: PANT-23 PO (19:49)
[2022-04-05] MEDS ORDERED: NITR4TASL SL (19:49)
[2022-04-05] MEDS ORDERED: HOME MED LIST COMPLETE! XX SCH (19:50)
[2022-04-05 20:45] VITALS: BP 132/71
[2022-04-05] MEDS ORDERED: INSULIN LISPRO (NovoLOG) PER UNIT SC SCH (21:00)
[2022-04-05] MEDS ORDERED: ATORVASTATIN 20 MG TAB PO SCH (21:00)
[2022-04-05] MEDS ORDERED: SERTRALINE 100 MG TAB PO SCH (21:00)
[2022-04-05] MEDS: FERROUS GLUCONATE 324 MG TAB PO SCH (21:29)
[2022-04-05] MEDS: DOXYCYCLINE HYCLATE 100MG TABLET PO SCH (21:29)
[2022-04-06 05:34] VITALS: BP 115/64
[2022-04-06 05:45] LABS: HEMATOCRIT 33.3 % (36.0-47.0); MEAN CORPUSCULAR HEMOGLOBIN 28.7 pg (27.0-33.0); MEAN CORPUSCULAR HGB CONC 30.6 g/dl (32.0-36.5); MEAN CORPUSCULAR VOLUME 93.5 fl (80.0-96.0); RED BLOOD COUNT 3.56 10^6/uL (4.00-5.40); WHITE BLOOD COUNT 10.5 10^3/uL (4.0-10.0)
[2022-04-06 06:00] LABS: HEMOGLOBIN 10.2 g/dl (12.0-15.5)
[2022-04-06 06:01] LABS: PLATELET COUNT, AUTOMATED 298 10^3/uL (150-450)
[2022-04-06 06:36] LABS: ALBUMIN 2.2 G/DL (3.2-5.2); ALKALINE PHOSPHATASE 32 U/L (46-116); ALT/SGPT < 9 U/L (7.0-40); AST/SGOT 9 U/L (<34); BILIRUBIN,TOTAL 0.3 MG/DL (0.3-1.2); BLOOD UREA NITROGEN 11 MG/DL (9-23); CALCIUM LEVEL 6.6 MG/DL (8.3-10.6); CARBON DIOXIDE LEVEL 22 MMOL/L (20-31); CHLORIDE LEVEL 115 MMOL/L (98-107); CREATININE FOR GFR 0.62 MG/DL (0.55-1.30); GLOMERULAR FILTRATION RATE > 60.0 (>45); GLUCOSE, FASTING 95 MG/DL (74-106); MAGNESIUM LEVEL 1.1 MG/DL (1.8-2.4); POTASSIUM SERUM 3.5 MMOL/L (3.5-5.1); SODIUM LEVEL 144 MMOL/L (136-145); TOTAL PROTEIN 3.9 G/DL (5.7-8.2)
[2022-04-06] MEDS: INSULIN LISPRO (NovoLOG) PER UNIT SC SCH ×2 (07:30→13:07)
[2022-04-06] MEDS ORDERED: MAGNESIUM OXIDE 400MG TAB (MAG-OX) PO ONE (07:45)
[2022-04-06 08:26] LABS: HEMOGLOBIN A1c 6.6 % (4.0-6.0)
[2022-04-06] MEDS: FERROUS GLUCONATE 324 MG TAB PO SCH (08:47)
[2022-04-06] MEDS: DOXYCYCLINE HYCLATE 100MG TABLET PO SCH (08:47)
[2022-04-06] MEDS ORDERED: PANTOPRAZOLE 40MG TAB (PROTONIX) PO SCH (09:00)
[2022-04-06] MEDS ORDERED: ENOXAPARIN 40MG/0.4ML SYRINGE (J1650 PER 10MG) SC SCH (09:00)
[2022-04-06] MEDS ORDERED: TELMISARTAN 20 MG TAB PO SCH (09:00)
[2022-04-06] MEDS ORDERED: LEVEMIR (INSULIN DETEMIR) 1 UNITS/0.01ML SC SCH (09:00)
[2022-04-06] MEDS ORDERED: CLOPIDOGREL 75 MG TAB PO SCH (09:00)
[2022-04-06] MEDS ORDERED: DOXY100T PO (09:06)
[2022-04-06] MEDS ORDERED: CEFD300C41 PO (09:06)
[2022-04-06 14:00] VITALS: BP 92/49
[2022-04-06] MEDS ORDERED: cefTRIAXone SOD 1 GM in D5W MINI-BAG PLUS 50 ML IV SCH (16:00)
== END 2022-04-06 16:24 | disposition home or self-care (01) | DRG 689 ==
LOC: M ED 13:06 → M ED INP 19:06 → M MSPAV 20:37
PROVIDERS: ADMIT Internal Medicine; ATTEND Family Medicine
DX: N39.0 Urinary tract infection, site not specified (principal); J18.9 Pneumonia, unspecified organism; J44.1 Chronic obstructive pulmonary disease with (acute) exacerbation; J44.0 Chronic obstructive pulmonary disease with (acute) lower respiratory infection; I25.10 Atherosclerotic heart disease of native coronary artery without angina pectoris; E78.5 Hyperlipidemia, unspecified; I10 Essential (primary) hypertension; M71.22 Synovial cyst of popliteal space [Baker], left knee; D64.9 Anemia, unspecified; E11.9 Type 2 diabetes mellitus without complications; K21.9 Gastro-esophageal reflux disease without esophagitis; F17.210 Nicotine dependence, cigarettes, uncomplicated; Z85.3 Personal history of malignant neoplasm of breast; Z98.49 Cataract extraction status, unspecified eye; Z90.49 Acquired absence of other specified parts of digestive tract; Z92.3 Personal history of irradiation; Z95.5 Presence of coronary angioplasty implant and graft

== ENCOUNTER → 2022-04-10 | Outpatient (REF) | payer MEDICARE ==
[~2022-04-10] MED LIST changes: +CEFD300C41 PO; +DOXY100T PO; +FERR32TA PO; +NITR4TASL SL; +PANT-23 PO
== END ==
LOC: M LAB REF 16:18
PROVIDERS: ATTEND Internal Medicine
DX: D50.9 Iron deficiency anemia, unspecified (principal)

== ENCOUNTER → 2022-04-23 | Outpatient (CLI) | payer MEDICARE | LOC: M RAD 08:02 | PROVIDERS: ATTEND Surgery Vascular Surgery | DX: I65.22 Occlusion and stenosis of left carotid artery (principal); I70.1 Atherosclerosis of renal artery; I73.9 Peripheral vascular disease, unspecified ==

== ENCOUNTER → 2022-04-27 | Outpatient (CLI) | payer MEDICARE ==
[~2022-04-27] MED LIST changes: +B-12100010 PO; +METO1TAB87
== END ==
LOC: M WHC 09:48
PROVIDERS: ATTEND Internal Medicine Hematology & Oncology
DX: Z12.31 Encounter for screening mammogram for malignant neoplasm of breast (principal); Z85.3 Personal history of malignant neoplasm of breast; Z87.891 Personal history of nicotine dependence